=== PATIENT | female | born 1985 | race Caucasian/White ===

== ENCOUNTER 2020-12-25 19:26 | Inpatient (IN) ==
[2020-12-25 20:10] LABS: Appearance Urine Clear (Clear); Bacteria Urine Automated Negative (Negative); Bilirubin Urine Negative (Negative); Blood Urine 3+ (Negative); Cast Urine Automated 0 /lpf (0-5); Color Urine Orange; Glucose Urine UA Negative (Negative); Ketones Urine Negative (Negative); Leukocyte Esterase Urine Negative (Negative); Nitrite Urine Negative (Negative); Protein Urine Negative (Negative); RBC Urine Automated 0-4 /hpf (0-4); Specific Gravity Urine 1.003 (1.000-1.030); Urobilinogen Urine Negative (Negative); pH Urine 6.5 (4.5-7.5)
[2020-12-25 20:44] LABS: Amphetamines+Metham, Urine Neg (Neg); Barbiturates, Urine Neg (Neg); Benzodiazepine, Urine Neg (Neg); Cocaine, Urine Neg (Neg); MDMA (Ecstacy), Urine Neg (Neg); Methadone, Urine Neg (Neg); Opiate, Urine Neg (Neg); Phencyclidine, Urine Neg (Neg)
[2020-12-25 20:49] LABS: Basophils # (auto) 0.01 K/uL (0-0.2); Basophils % (auto) 0.2 %; Eosinophils # (auto) 0.23 K/uL (0-0.5); Eosinophils % (auto) 4.6 %; Hematocrit (blood only) 40.2 % (37-47); Hemoglobin 13.6 g/dL (12.0-16.0); Immature Granulocytes # (auto) 0.02 K/uL (0.00-0.02); Immature Granulocytes % (auto) 0.4 %; Lymphocytes # (auto) 2.06 K/uL (1.2-3.4); Lymphocytes % (auto) 41.1 %; Mean Corpuscular Hemoglobin 32.1 pg (25-34); Mean Corpuscular Hgb Conc 33.8 g/dL (32-36); Mean Corpuscular Volume 94.8 fL (80-100); Mean Platelet Volume 10.8 fL (7.4-10.4); Monocytes # (auto) 0.46 K/uL (0.11-0.59); Monocytes % (auto) 9.2 %; Neutrophils # (auto) 2.23 K/uL (1.4-6.5); Neutrophils % (auto) 44.5 %; Platelet Count 164 K/uL (130-400); RDW Coefficient of Variation 12.8 % (11.5-14.5); RDW Standard Deviation 44.4 fL (36.4-46.3); Red Blood Count 4.24 M/uL (4.2-5.4); White Blood Count 5.01 K/uL (4.8-10.8)
[2020-12-25 21:08] LABS: Acetaminophen < 2 ug/ml (10-30); Albumin Level 3.5 gm/dl (3.4-5.0); Calcium 8.7 mg/dl (8.5-10.1); Creatinine Clr Calc Pharmacy 79.1 ml/min; Est GFR (African American) 127.9 ml/min; Est GFR (Non-African American) 110.4 ml/min; Potassium 3.5 mmol/L (3.5-5.1); Salicylate < 1.7 mg/dl (2.8-20)
[2020-12-25 21:18] LABS: Bilirubin,Total 0.4 mg/dl (0.2-1); Globulin 3.4 gm/dl (2.5-4.0); Thyroid Stimulating Hormone 1.34 uIu/ml (0.300-4.500); Total Protein 6.9 gm/dl (6.4-8.2)
--- NOTE | 2020-12-25 22:40 | Emergency Department Note ---
Impression & Plan Mood disorder, Suicidal ideation ED Provider Note INFORMANT: Patient, [facility] ED PROVIDER(S): Tonny Hummel MD CHIEF COMPLAINT: Mental health evaluation PLAN: Disposition: Still patient Condition: Good Outpatient prescription management: none Referral: None MEDICAL DECISION MAKING: Patient presented to the emergency department because of a 302 warrant. She had written multiple suicide notes and was going to use a knife to harm herself. She is going through a separation with her . The patient was evaluated by the [facility] today and there was significant concern about her lack of insight and her plan that was set forth including writing multiple suicide notes. The patient could not contract for safety and the delegate generated a warrant for mental health evaluation. The patient was brought into the emergency department by police. Laboratory testing was unremarkable. The patient is not . Toxicology screen did not reveal any acute findings. The patient did not feel that she needed to be admitted to the hospital. Given the situation with the significant concern for her safety the 302 was upheld. A bed search is underway. The patient's case was signed out to Dr. Orosco at the change of shift. Triage Nursing notes reviewed and agree them. Vital Signs: reviewed and remarkable for no significant abnormalities Differential diagnosis: Mood disorder, infection, hypoglycemia, electrolyte abnormalities, cardiac sources, intracerebral event, toxicologic, trauma, neurologic, as well as other pathologies. Diagnostics interpreted by me: ECG: none Cardiac Monitoring: none Imaging studies: Deferred HPI: The patient is a 35 year old female who presents to the Emergency Room on a 302 warrant for mental health evaluation. This started today by the [facility] and is stemming from plans of suicide yesterday. The patient also note s the following associated symptoms, patient denies. No homicidal ideation. The patient states that she was holding a knife and was going to cut herself. She received a call from the social contact worker and that broke her thought process and she put the knife down. She did write multiple suicidal notes. The [facility] could not contract her for safety and was very concerned about her. A 302 warrant was generated in order to have the patient fully evaluated. The patient has been admitted to the hospital for mental health reasons in the past. She states she was at the [facility] and did not have a good experience there. Patient also notes because being upset yesterday she did not take her psychiatric medications. The patient has taken no medication for relieving factors. Current pain is rated as 0/10. No recent illnesses. No trauma. Pt denies LOC, headache, fevers, chills, diaphoresis, visual changes, neck pain, chest pain, breathing difficulties, nausea, vomiting, abdominal pain, back pain, melena, hematochezia, urinary symptoms, numbness, weakness, lymphadenopathy, rash, or other complaints. ROS: See above HPI for pertinent positives & negatives. A total of 10 systems reviewed and were otherwise negative. PAST MEDICAL HISTORY:See Below , depression PAST SURGICAL HISTORY:See Below, FAMILY HISTORY:See Below SOCIAL HISTORY:See Below, going through a divorce HOME MEDICATIONS:See Below ALLERGIES:See Below VITALS:See Below PHYSICAL EXAMINATION: GENERAL: Awake, alert, well-appearing, in no distress HENT: Normocephalic, atraumatic. Oropharynx unremarkable. EYES: Normal conjunctiva. Sclera non-icteric. NECK: Inspection normal. Non-tender. Supple. No nuchal rigidity. FROM. No masses. RESPIRATORY: Clear to auscultation. No wheezes. No rales. Normal respiratory effort. CARDIAC: Normal rate. Normal rhythm. No murmurs. No rubs. Extremities warm and well perfused. Pulses equal. No JVD. GI: Soft, non-distended. No tenderness to palpation. No rebound or guarding. No masses. RECTAL: Deferred. MUSCULOSKELETAL: Atraumatic. Chest examination reveals no tenderness. The back is symmetrical on inspection without obvious abnormality. There is no CVA tenderness to palpation. No joint edema. LOWER EXTREMITIES: Calves are equal size bilaterally and non-tender. No edema. No discoloration. NEURO: Normal sensorium. No sensory or motor deficits noted. SKIN: No rash or jaundice noted. PSYCH: No hallucinations or delusions. Impaired insight and poor judgment. Denies current suicidal ideation. No homicidal ideation. Tonny Hummel MD Past Med/Surg History Social History Smoking Status: Never smoker Feels Safe at Home: Yes Allergies Allergies Allergy/AdvReac Type Severity Reaction Status Date / Time No Known Allergies Allergy Unverified 12/25/20 21:59 Home Meds Home Medications Medication Instructions Recorded Confirmed sertraline PO DAILY 12/25/20 Results & Data (ED) Vital Signs Vital Signs - 24 hr 12/25/20 19:15 12/25/20 21:38 Temperature 37.1 C Temperature Source Oral Pulse Rate 82 Pulse Rate [Finger] 72 Respiratory Rate 16 16 Respiratory Effort / Characteristics Non-Labored Respiratory Depth Normal Blood Pressure 132/83 Blood Pressure [Left Arm] 126/76 Blood Pressure Mean 99 Blood Pressure Mean [Left Arm] 92 Pulse Oximetry 98 99 Oxygen Delivery Method Room Air Room Air Sepsis Recent Fever Within 48 Hours No Sepsis New/Unexplained Change in Mental Status No Sepsis Action Taken by Nursing No Action Required Laboratory Data Result diagrams: 12/25/20 20:37 12/25/20 20:37 Lab Results 12/25/20 12/25/20 12/25/20 Range/Units 19:30 19:30 19:47 WBC (4.8-10.8) K/uL RBC (4.2-5.4) M/uL Hgb (12.0-16.0) g/dL Hct (37-47) % MCV (80-100) fL MCH (25-34) pg MCHC (32-36) g/dL RDW Std Deviation (36.4-46.3) fL RDW Coeff of Karolyn (11.5-14.5) % Plt Count (130-400) K/uL MPV (7.4-10.4) fL Immature Gran % (Auto) % Neut % (Auto) % Lymph % (Auto) % Ogle % (Auto) % Eos % (Auto) % Baso % (Auto) % Neut # (Auto) (1.4-6.5) K/uL Lymph # (Auto) (1.2-3.4) K/uL Ogle # (Auto) (0.11-0.59) K/uL Eos # (Auto) (0-0.5) K/uL Baso # (Auto) (0-0.2) K/uL Immature Gran # (Auto) (0.00-0.02) K/uL Sodium (136-145) mmol/L Potassium (3.5-5.1) mmol/L Chloride (98-107) mmol/L Carbon Dioxide (21-32) mmol/L Anion Gap (3-11) BUN (7-18) mg/dl Creatinine (0.6-1.2) mg/dl Est Cr Clr Drug Dosing ml/min Est GFR ( Amer) ml/min Est GFR (Non-Af Amer) ml/min BUN/Creatinine Ratio (10-20) Glucose (70-99) mg/dl Calcium (8.5-10.1) mg/dl Total Bilirubin (0.2-1) mg/dl AST (15-37) U/L ALT (12-78) U/L Alkaline Phosphatase (45-117) U/L Total Protein (6.4-8.2) gm/dl Albumin (3.4-5.0) gm/dl Globulin (2.5-4.0) gm/dl Albumin/Globulin Ratio (0.9-2) TSH (0.300-4.500) uIu/ml Urine Color Emmet Urine Appearance Clear (Clear) Urine pH 6.5 (4.5-7.5) Ur Specific Aurora 1.003 (1.000-1.030) Urine Protein Negative (Negative) Urine Glucose (UA) Negative (Negative) Urine Ketones Negative (Negative) Urine Blood 3+ H (Negative) Urine Nitrite Negative (Negative) Urine Bilirubin Negative (Negative) Urine Urobilinogen Negative (Negative) Ur Leukocyte Esterase Negative (Negative) Urine WBC (Auto) 1-5 (0-5) /hpf Urine RBC (Auto) 0-4 (0-4) /hpf U Hyaline Cast (Auto) 0 (0-5) /lpf U Epithel Cells (Auto) 5-10 H (0-5) /lpf Urine Bacteria (Auto) Negative (Negative) POC Ur Test NEG (NEG) Salicylates (2.8-20) mg/dl Urine Opiates Screen Neg (Neg) Ur Methadone, Qual Neg (Neg) Acetaminophen (10-30) ug/ml Urine Barbiturates Neg (Neg) Ur Phencyclidine (PCP) Neg (Neg) U Amphetamin/Meth Scrn Neg (Neg) MDMA (Ecstasy) Screen Neg (Neg) U Benzodiazepines Scrn Neg (Neg) Ur Cocaine Metabolite Neg (Neg) U Marijuana (THC) Screen Neg (Neg) Ethyl Alcohol mg/dL (0-3) mg/dl COVID-19 Eval Order SARS-CoV-2, RNA, NAAT (NEGATIVE) 12/25/20 12/25/20 12/25/20 Range/Units 20:37 20:37 20:37 WBC 5.01 (4.8-10.8) K/uL RBC 4.24 (4.2-5.4) M/uL Hgb 13.6 (12.0-16.0) g/dL Hct 40.2 (37-47) % MCV 94.8 (80-100) fL MCH 32.1 (25-34) pg MCHC 33.8 (32-36) g/dL RDW Std Deviation 44.4 (36.4-46.3) fL RDW Coeff of Karolyn 12.8 (11.5-14.5) % Plt Count 164 (130-400) K/uL MPV 10.8 H (7.4-10.4) fL Immature Gran % (Auto) 0.4 % Neut % (Auto) 44.5 % Lymph % (Auto) 41.1 % Ogle % (Auto) 9.2 % Eos % (Auto) 4.6 % Baso % (Auto) 0.2 % Neut # (Auto) 2.23 (1.4-6.5) K/uL Lymph # (Auto) 2.06 (1.2-3.4) K/uL Ogle # (Auto) 0.46 (0.11-0.59) K/uL Eos # (Auto) 0.23 (0-0.5) K/uL Baso # (Auto) 0.01 (0-0.2) K/uL Immature Gran # (Auto) 0.02 (0.00-0.02) K/uL Sodium 142 (136-145) mmol/L Potassium 3.5 (3.5-5.1) mmol/L Chloride 109 H (98-107) mmol/L Carbon Dioxide 27 (21-32) mmol/L Anion Gap 6.0 (3-11) BUN 8 (7-18) mg/dl Creatinine 0.71 (0.6-1.2) mg/dl Est Cr Clr Drug Dosing 79.1 ml/min Est GFR ( Amer) 127.9 ml/min Est GFR (Non-Af Amer) 110.4 ml/min BUN/Creatinine Ratio 11.0 (10-20) Glucose 89 (70-99) mg/dl Calcium 8.7 (8.5-10.1) mg/dl Total Bilirubin 0.4 (0.2-1) mg/dl AST 15 (15-37) U/L ALT 21 (12-78) U/L Alkaline Phosphatase 85 (45-117) U/L Total Protein 6.9 (6.4-8.2) gm/dl Albumin 3.5 (3.4-5.0) gm/dl Globulin 3.4 (2.5-4.0) gm/dl Albumin/Globulin Ratio 1.0 (0.9-2) TSH 1.340 (0.300-4.500) uIu/ml Urine Color Urine Appearance (Clear) Urine pH (4.5-7.5) Ur Specific Aurora (1.000-1.030) Urine Protein (Negative) Urine Glucose (UA) (Negative) Urine Ketones (Negative) Urine Blood (Negative) Urine Nitrite (Negative) Urine Bilirubin (Negative) Urine Urobilinogen (Negative) Ur Leukocyte Esterase (Negative) Urine WBC (Auto) (0-5) /hpf Urine RBC (Auto) (0-4) /hpf U Hyaline Cast (Auto) (0-5) /lpf U Epithel Cells (Auto) (0-5) /lpf Urine Bacteria (Auto) (Negative) POC Ur Test (NEG) Salicylates < 1.7 L (2.8-20) mg/dl Urine Opiates Screen (Neg) Ur Methadone, Qual (Neg) Acetaminophen < 2 L (10-30) ug/ml Urine Barbiturates (Neg) Ur Phencyclidine (PCP) (Neg) U Amphetamin/Meth Scrn (Neg) MDMA (Ecstasy) Screen (Neg) U Benzodiazepines Scrn (Neg) Ur Cocaine Metabolite (Neg) U Marijuana (THC) Screen (Neg) Ethyl Alcohol mg/dL (0-3) mg/dl COVID-19 Eval Order SARS-CoV-2, RNA, NAAT (NEGATIVE) 12/25/20 12/25/20 12/25/20 Range/Units 20:37 21:45 21:45 WBC (4.8-10.8) K/uL RBC (4.2-5.4) M/uL Hgb (12.0-16.0) g/dL Hct (37-47) % MCV (80-100) fL MCH (25-34) pg MCHC (32-36) g/dL RDW Std Deviation (36.4-46.3) fL RDW Coeff of Karolyn (11.5-14.5) % Plt Count (130-400) K/uL MPV (7.4-10.4) fL Immature Gran % (Auto) % Neut % (Auto) % Lymph % (Auto) % Ogle % (Auto) % Eos % (Auto) % Baso % (Auto) % Neut # (Auto) (1.4-6.5) K/uL Lymph # (Auto) (1.2-3.4) K/uL Ogle # (Auto) (0.11-0.59) K/uL Eos # (Auto) (0-0.5) K/uL Baso # (Auto) (0-0.2) K/uL Immature Gran # (Auto) (0.00-0.02) K/uL Sodium (136-145) mmol/L Potassium (3.5-5.1) mmol/L Chloride (98-107) mmol/L Carbon Dioxide (21-32) mmol/L Anion Gap (3-11) BUN (7-18) mg/dl Creatinine (0.6-1.2) mg/dl Est Cr Clr Drug Dosing ml/min Est GFR ( Amer) ml/min Est GFR (Non-Af Amer) ml/min BUN/Creatinine Ratio (10-20) Glucose (70-99) mg/dl Calcium (8.5-10.1) mg/dl Total Bilirubin (0.2-1) mg/dl AST (15-37) U/L ALT (12-78) U/L Alkaline Phosphatase (45-117) U/L Total Protein (6.4-8.2) gm/dl Albumin (3.4-5.0) gm/dl Globulin (2.5-4.0) gm/dl Albumin/Globulin Ratio (0.9-2) TSH (0.300-4.500) uIu/ml Urine Color Urine Appearance (Clear) Urine pH (4.5-7.5) Ur Specific Aurora (1.000-1.030) Urine Protein (Negative) Urine Glucose (UA) (Negative) Urine Ketones (Negative) Urine Blood (Negative) Urine Nitrite (Negative) Urine Bilirubin (Negative) Urine Urobilinogen (Negative) Ur Leukocyte Esterase (Negative) Urine WBC (Auto) (0-5) /hpf Urine RBC (Auto) (0-4) /hpf U Hyaline Cast (Auto) (0-5) /lpf U Epithel Cells (Auto) (0-5) /lpf Urine Bacteria (Auto) (Negative) POC Ur Test (NEG) Salicylates (2.8-20) mg/dl Urine Opiates Screen (Neg) Ur Methadone, Qual (Neg) Acetaminophen (10-30) ug/ml Urine Barbiturates (Neg) Ur Phencyclidine (PCP) (Neg) U Amphetamin/Meth Scrn (Neg) MDMA (Ecstasy) Screen (Neg) U Benzodiazepines Scrn (Neg) Ur Cocaine Metabolite (Neg) U Marijuana (THC) Screen (Neg) Ethyl Alcohol mg/dL < 3.0 (0-3) mg/dl COVID-19 Eval Order Covid19 [facility] SARS-CoV-2, RNA, NAAT NEGATIVE (NEGATIVE) Discharge Plan Visit Data Chief Complaint: Mental Health Evaluation ED Provider: Tonny Hummel Discharge Problem: Mood disorder, Suicidal ideation Forms Stand Alone Forms: [facility], Suicide Prevention Resources Prescriptions Prescriptions: No Action sertraline PO DAILY RF: 0 Referrals Referrals: PCP,NO [Physician] -
[2020-12-26] MEDS ORDERED: BISMUTH SUBSALICYLATE LIQD 236 ML PO PRN (00:59)
[2020-12-26] MEDS ORDERED: SODIUM CHLORIDE 0.65% NA SOLN 45 ML (OCEAN) PRN (00:59)
[2020-12-26] MEDS ORDERED: MAGNESIUM HYDROXIDE SUSP 30 ML UDC PO PRN (00:59)
[2020-12-26] MEDS ORDERED: ALUMINUM/MAGNESIUM SUSP 30 ML UDC PO PRN (00:59)
[2020-12-26] MEDS ORDERED: hydrOXYzine HCl 25 MG TAB PO PRN ×2 (00:59)
[2020-12-26 01:24] VITALS: O2SAT 98
--- NOTE | 2020-12-26 07:41 | Emergency Department Note ---
ED Visit Note Patient signed out to me at change of shift. Patient is a 302. Please refer to Dr. Hummel's note for prior details that he did initially seen and medically cleared the patient. Patient referred to [facility] and was accepted there. .
[2020-12-26] MEDS ORDERED: SERTRALINE HCL 50 MG TABLET PO SCH (12:30)
[2020-12-26] MEDS: ACETAMINOPHEN 325 MG TAB PO PRN (17:07)
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
[2020-12-26] MEDS ORDERED: LORazepam 0.5 MG TAB PO PRN (17:27)
[2020-12-27] MEDS: SERTRALINE HCL 50 MG TABLET PO SCH ×2 (09:17→10:09)
--- NOTE | 2020-12-27 10:39 | Psychiatric Progress Note ---
Date of Service December 27, 2020 Impression / Recommendations Impression This is a 35-year-old female with a history of MDD with suicidal ideation and 2 prior suicide attempts who presents today after having made suicidal threats to her family members and is currently being held on a 302 involuntary hospitalization. She will require inpatient hospitalization for purposes of safety, stabilization, and medication management. Patient presently denying any further suicidal ideation today, we will continue to monitor observe. (1) Mood disorder: The patient was admitted to the [facility] ([facility] mental health unit) on every 15 minute checks (behavioral with suicide precautions for safety. The patient will participate in group, recreational, and milieu therapies and will be offered additional individual and family sessions as clinically appropriate. 12/27/2020atient took her medication, continues to report that her mood is improved. 12/26/2020atient currently taking 50 mg of Zoloft p.o. every morning. We will plan to increase this dosage to 75 mg p.o. every morning starting tomorrow morning. Protective Factors Assessment Employed: No Interval History Chief Complaint "I am, but I think the medicine made me nauseous". Review of Systems Sleep Information Total Hours of Sleep: 6.5 Sleep Comments: pt awaken due to patient yelling in the hallway. pt on q-15 minute checks Meal Information Percent Meal Consumed - Breakfast: 0 Percent Meal Consumed - Lunch: 100 Percent Meal Consumed - Dinner: 0 Subjective Subjective Patient seen, chart reviewed and case discussed with treatment team, nursing and social work. Patient reports a fair night of sleep and poor appetite. She reports that the medication is making her nauseous. Regarding mood, patient reports some improvement which they attribute to the medications as well as the therapy they have received on the unit. She continues to deny any suicidal ideation. At first patient was initially reluctant to take the medication, but then did with encouragement. She attributes it to feeling "too drugged up "at her other inpatient hospitalizations and is fearful that the medication will create a similar effect. She was reassured that some of the side effects are transient. I spent 30 minutes with the patient, 50% of which was dedicated to counselling and coordination of care. Physical Exam Psychiatric Orientation: alert and oriented x 3 Apperance: appropriately dressed Eye Contact: + fair eye contact Motor Behavior: no abnormal motor movements Speech: normal rate/rhythm/volume of speech Affect: + depressed affect, + anxious affect and + tearful affect Mood: + depressed mood and + anxious mood Thought Process: linear/logical thought process Thought Content: reality based without delusions Suicidal Thoughts: denies suicidal thoughts and denies suicidal plan Homicidal Thoughts: denies homicidal thoughts and denies homicidal plan Hallucinations: + auditory hallucinations and + visual hallucinations Cognition: recent memory grossly intact Estimated Intelligence: consistent with education level Insight: + fair insight Judgement: + limited judgement Vital Signs (Past 24 Hours) Last Vital Signs Temp 36.6 C 12/27/20 06:00 Pulse 83 12/27/20 06:39 Resp 16 12/27/20 06:00 BP 94/60 L 12/27/20 06:39 Pulse Ox 98 12/26/20 01:23 Results & Data ([facility] [place]) Current Inpatient Medications Current Inpatient Medications: Current Inpatient Medications Acetaminophen (Acetaminophen 325 Mg Tab) 650 mg PO Q4H PRN PRN Reason: Headache or Minor Fever Stop: 01/25/21 00:58 Last Admin: 12/26/20 17:07 Dose: 650 mg Documented by: Al Hydrox/Mg Hydrox/Simethicone (Aluminum/Magnesium Susp 30 Ml Udc) 30 ml PO Q4H PRN PRN Reason: GI Upset Stop: 01/25/21 00:58 Bismuth Subsalicylate (Bismuth Subsalicylate Liqd 236 Ml) 15 ml PO PRN PRN PRN Reason: Loose Stool Stop: 01/25/21 00:58 Hydroxyzine HCl (Hydroxyzine Hcl 25 Mg Tab) 50 mg PO HSZ PRN PRN Reason: Insomnia Stop: 01/25/21 00:58 Hydroxyzine HCl (Hydroxyzine Hcl 25 Mg Tab) 25 mg PO Q4H PRN PRN Reason: Anxiety Stop: 01/25/21 00:58 Lorazepam (Lorazepam 0.5 Mg Tab) 0.5 mg PO Q6 PRN PRN Reason: Anxiety Stop: 01/25/21 17:26 Magnesium Hydroxide (Magnesium Hydroxide Susp 30 Ml Udc) 30 ml PO DAILY PRN PRN Reason: Constipation Stop: 01/25/21 00:58 Sertraline HCl (Sertraline Hcl 50 Mg Tablet) 75 mg PO QAM ILIA Stop: 01/26/21 08:59 Last Admin: 12/27/20 10:09 Dose: 75 mg Documented by: Sodium Chloride (Sodium Chloride 0.65% Na Soln 45 Ml ([place])) 1 - 2 sprays NA PRN PRN PRN Reason: Nasal Dryness/Congestion Stop: 01/25/21 00:58 Mental Health & Subst Abuse Tx Psychiatrist Name of Psychiatrist: Dari Ruff Date of Appointment with Psychiatrist: 01/24/21 Therapist Name of Therapist: July Charles (support group) Therapist's Therapy Appointment Comment: [address], [place] [address] Shaker Screen Operator Name of Shaker Screen Operator: Ernesto CARTY Phone Number for Shaker Screen Operator: [phone] Case Management Appointment Comment: [address], [place] [address] Post Discharge Appointments Primary Care Physician Name Of Family Doctor: DICK Hopper Primary Care Provider Appointment Comment: [address], [place] [address] Partial or Psych Rehab Name of Partial or Psych Rehab: [phone] Phone Number of Partial or Psych Rehab: [address] [place] [address], [place] [address] Contact Information Discharge Discharge Address: [address] [place] [address], [place] [address]
[2020-12-27] MEDS ORDERED: SERTRALINE HCL 50 MG TABLET PO SCH (12:30)
[2020-12-27] MEDS: ACETAMINOPHEN 325 MG TAB PO PRN (13:41)
[2020-12-28] MEDS: SERTRALINE HCL 50 MG TABLET PO SCH (09:21)
--- NOTE | 2020-12-28 13:50 | Psychiatric Progress Note ---
Date of Service December 28, 2020 Impression / Recommendations Impression This is a 35-year-old female with a history of MDD with suicidal ideation and 2 prior suicide attempts who presents today after having made suicidal threats to her family members and is currently being held on a 302 involuntary hospitalization. She will require inpatient hospitalization for purposes of safety, stabilization, and medication management. Patient presently denying any further suicidal ideation today, we will continue to monitor observe. (1) Mood disorder: The patient was admitted to the [facility] ([facility] mental health unit) on every 15 minute checks (behavioral with suicide precautions for safety. The patient will participate in group, recreational, and milieu therapies and will be offered additional individual and family sessions as clinically appropriate. 12/28/2020atient continues to be compliant with medication, is reporting stabilization of mood and denying suicidal ideation. We will start discharge planning for tomorrow. 12/27/2020atient took her medication, continues to report that her mood is improved. 12/26/2020atient currently taking 50 mg of Zoloft p.o. every morning. We will plan to increase this dosage to 75 mg p.o. every morning starting tomorrow morning. Protective Factors Assessment Employed: No Interval History Chief Complaint "I'm feeling better". Review of Systems Sleep Information Total Hours of Sleep: 7 Sleep Comments: pt awaken due to patient yelling in the hallway. pt on q-15 minute checks Meal Information Percent Meal Consumed - Breakfast: 100 Percent Meal Consumed - Lunch: 100 Percent Meal Consumed - Dinner: 25 Subjective Subjective Patient seen, chart reviewed and case discussed with treatment team, nursing and social work. Patient reports a good night of sleep and strong appetite. No side effects reported or observed. Regarding mood, patient reports some improvement which they attribute to the medications as well as the therapy they have received on the unit. I spent 30 minutes with the patient, 50% of which was dedicated to counselling and coordination of care. Physical Exam Psychiatric Orientation: alert and oriented x 3 Apperance: appropriately dressed Eye Contact: + fair eye contact Motor Behavior: no abnormal motor movements Speech: normal rate/rhythm/volume of speech Affect: + depressed affect, + anxious affect and + tearful affect Mood: + depressed mood and + anxious mood Thought Process: linear/logical thought process Thought Content: reality based without delusions Suicidal Thoughts: denies suicidal thoughts and denies suicidal plan Homicidal Thoughts: denies homicidal thoughts and denies homicidal plan Hallucinations: + auditory hallucinations and + visual hallucinations Cognition: recent memory grossly intact Estimated Intelligence: consistent with education level Insight: + fair insight Judgement: + limited judgement Vital Signs (Past 24 Hours) Last Vital Signs Temp 36 C L 12/28/20 06:36 Pulse 65 12/28/20 06:37 Resp 16 12/28/20 06:36 BP 95/69 L 12/28/20 06:37 Pulse Ox 98 12/26/20 01:23 Results & Data ([facility]) Current Inpatient Medications Current Inpatient Medications: Current Inpatient Medications Acetaminophen (Acetaminophen 325 Mg Tab) 650 mg PO Q4H PRN PRN Reason: Headache or Minor Fever Stop: 01/25/21 00:58 Last Admin: 12/27/20 13:41 Dose: 650 mg Documented by: Al Hydrox/Mg Hydrox/Simethicone (Aluminum/Magnesium Susp 30 Ml Udc) 30 ml PO Q4H PRN PRN Reason: GI Upset Stop: 01/25/21 00:58 Bismuth Subsalicylate (Bismuth Subsalicylate Liqd 236 Ml) 15 ml PO PRN PRN PRN Reason: Loose Stool Stop: 01/25/21 00:58 Hydroxyzine HCl (Hydroxyzine Hcl 25 Mg Tab) 50 mg PO HSZ PRN PRN Reason: Insomnia Stop: 01/25/21 00:58 Hydroxyzine HCl (Hydroxyzine Hcl 25 Mg Tab) 25 mg PO Q4H PRN PRN Reason: Anxiety Stop: 01/25/21 00:58 Lorazepam (Lorazepam 0.5 Mg Tab) 0.5 mg PO Q6 PRN PRN Reason: Anxiety Stop: 01/25/21 17:26 Magnesium Hydroxide (Magnesium Hydroxide Susp 30 Ml Udc) 30 ml PO DAILY PRN PRN Reason: Constipation Stop: 01/25/21 00:58 Sertraline HCl (Sertraline Hcl 50 Mg Tablet) 75 mg PO QAM ILIA Stop: 01/26/21 08:59 Last Admin: 12/28/20 09:21 Dose: 75 mg Documented by: Sodium Chloride (Sodium Chloride 0.65% Na Soln 45 Ml ([place])) 1 - 2 sprays NA PRN PRN PRN Reason: Nasal Dryness/Congestion Stop: 01/25/21 00:58 Mental Health & Subst Abuse Tx Psychiatrist Name of Psychiatrist: Dari Ruff Psychiatrist's Date of Appointment with Psychiatrist: 01/02/21 Time of Appointment with Psychiatrist: 10:45am Psychiatric Appointment Comment: [facility] office Therapist Name of Therapist: Dl healy referral Therapist's Therapy Appointment Comment: [address], [place] [address] Hydraulic Chair Assembler Name of Hydraulic Chair Assembler: ARRONU Arianna Mauro Phone Number for Hydraulic Chair Assembler: [phone] Date of Appointment with Hydraulic Chair Assembler: 12/30/20 Time of Appointment with Hydraulic Chair Assembler: 4:00 p.m. Case Management Appointment Comment: Will see you at your home Post Discharge Appointments Primary Care Physician Name Of Family Doctor: DICK Hopper Primary Care Date of Appointment with PCP: 01/01/21 Time of Appointment with PCP: 2 p.m Provider Appointment Comment: [address], [place] [address] Partial or Psych Rehab Name of Partial or Psych Rehab: [phone] Phone Number of Partial or Psych Rehab: [address] [place] [address], [place] [address] Other #1: Name of Aftercare Appointment: [facility] (support group) Phone Number of Aftercare Appointment: [phone] Aftercare Appointment Comment: [address], [place] [address] Contact Information Discharge Discharge Address: [address] [place] [address], [place] [address]
[2020-12-29 06:22] VITALS: BP 94/58; TEMP 97.7
[2020-12-29] MEDS: SERTRALINE HCL 50 MG TABLET PO SCH (09:21)
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
[2020-12-29 10:13] VITALS: PULSE 65
[2020-12-29] MEDS ORDERED: DESTROY THIS MEDICATION ONE (10:23)
== END 2020-12-29 12:15 | disposition home or self-care (01) | DRG 881 ==
LOC: ED 19:26 → MERGE 12-26 00:59 → 3S 12-26 00:59

== ENCOUNTER 2021-10-18 13:12 | Inpatient (IN) ==
--- NOTE | 2021-10-18 14:14 | Emergency Department Note ---
Impression & Plan Depressed ED Provider Note NAME: VERONICA RAYGOZA AGE: 35 SEX: F : 1985 ARRIVES VIA: Walk-In INFORMANT: [Patient] ED PROVIDER(S): [Rohan Gee MD] CHIEF COMPLAINT: Mental health evaluation HISTORY OF PRESENT ILLNESS: Patient is a 35-year-old female who has had some increased stressors lately in her life. She is currently undergoing a divorce. As a result of the divorce, her children have been giving her some increased stress. The patient denies being homicidal or suicidal but she is feeling quite depressed. She believes she requires inpatient care. She is not sleeping, she is not eating. She is having crying spells. She has history of previous suicidality and suicide attempt. She is not currently medicated for depression but has taken depression medications in the past. There has been no cough or cold or congestion. No urinary complaints. She was recently diagnosed with an ovarian cyst. The patient presents voluntarily. REVIEW OF SYSTEMS: See HPI for pertinent positives and negatives. A total of ten systems were reviewed and were otherwise negative. PMHx/PSHx: See Below SOCIAL HISTORY: See Below. PHYSICAL EXAM: GENERAL: Patient is in no acute distress. Anxious, tearful. HEENT: No acute trauma, normocephalic atraumatic, mucous membranes moist, no nasal congestion, no scleral icterus. NECK: No stridor, no adenopathy, no meningismus, trachea is midline. LUNGS: Clear to auscultation bilaterally, no wheeze, no rhonchi, breath sounds equal. HEART: Without murmurs gallops or rubs, regular rate and rhythm. ABDOMEN: Soft, nontender, bowel sounds positive, no peritonitis. EXTREMITIES: No cyanosis or edema, full range of motion of all the joints without pain or difficulty, no signs for acute trauma. NEUROLOGIC: Oriented x 3, no acute motor or sensory deficits, no focal weakness. SKIN: No rash, no jaundice, no diaphoresis. Psychiatric: Cooperative, voluntary, tearful, flat affect. Admits to feeling depressed but denies being suicidal. DIFFERENTIAL DIAGNOSIS: Mood disorder, infection, hypoglycemia, depression, anxiety, suicidality, electrolyte abnormalities, cardiac sources, intracerebral event, toxicologic etiology, trauma, neurologic event, as well as other pathologies. EMERGENCY DEPARTMENT COURSE/PROCEDURES: MEDICAL DECISION MAKING: There is a very mild leukocytosis, no worrisome anemia. There is a normal platelet count. No significant electrolyte abnormality, no renal failure, no worrisome liver enzyme elevation. The patient appears to be in a euthyroid state. Urinalysis shows some hematuria, no infection. testing returned negative. Aspirin and Tylenol levels are undetectable. Alcohol level is pending. COVID test was negative. Urine tox did not show any abnormalities. On exam, the patient was tearful and upset. She appeared depressed. She had a flattened affect but denied being actively suicidal. The patient was felt medically clear for a psychiatric evaluation. She was seen by psychiatry case management. She has been cooperative during her ED stay. The patient is being referred to [facility] psychiatric facility. We await their assessment. At this point, the patient's case is being assumed by Dr. Westfall at the change of shift. Patient remains voluntary and will likely be a psychiatric hospitalization at our facility. Past Med/Surg History Medical History Acid reflux Migraine headache Ovarian cancer diagnosed 2016--sx/radiation Suicide attempt (~04/2020) Surgical History History of cancer surgery 2016--in [facility]--"just removed the cancer parts", pt denies oophorectomy History of wisdom tooth extraction S/P section x3 Family History Mother Hypertension Father Diabetes Family history of diabetes mellitus Hypertension Family hx of colon cancer Grandmother (Maternal) Family history of diabetes mellitus Other No family history of adverse response to anesthesia Denies family history of Colon cancer Ovarian cancer Prostate cancer Myocardial infarction Breast cancer Social History Smoking Status: Never smoker Second Hand Exposure: No; Hx Alcohol Use: Yes Alcohol type: wine Alcohol Intake Frequency: 2-4 x/Month Hx Substance Use: No Preferred Language: Italian Communication Ability: Effective Visual Impairment: No Limitations Hearing Ability: Normal Angledozer Operator Required: No Beliefs That Will Affect Care: None and Voodoo Voodoo Beliefs: Prays for 20 minutes at 08:00, 12:00 and 18:00 marital status: marital status details: separtated Current Living Situation: Family Current Living Situation Comment: Lives with son (separted from ),[employer] current occupational status: unemployed current occupation: Homemaker How many Children do You have: 2 How many Children do You have Comment: age 17 Feels Safe at Home: No Is there a partner from a previous relationship who is making you feel unsafe now?: No Childhood Exposure to Second-Hand Smoke: No caffeine: Yes Dental Care, Regularly: Yes Physical Activity Frequency: 1-2 Times per Week Seatbelt Use: always Sunscreen Use: Yes Do you think of yourself as: straight/heterosexual Assistive Devices: None Allergies Allergies Allergy/AdvReac Type Severity Reaction Status Date / Time No Known Allergies Allergy Verified 10/02/21 13:33 Home Meds Home Medications Medication Instructions Recorded Confirmed acetaminophen 500 mg tablet 1,000 mg PO Q6H PRN 01/29/21 10/02/21 (Tylenol Extra Strength) sertraline 50 mg tablet 75 mg PO QAM 01/29/21 10/02/21 Previous Rx's Medication Instructions Recorded naproxen 500 mg tablet 500 mg PO BID PRN #20 tab 10/02/21 Results & Data (ED) Vital Signs Vital Signs - 24 hr 10/18/21 13:16 10/18/21 13:51 10/18/21 15:12 Temperature 36.7 C Temperature Source Temporal Artery Scan Pulse Rate 86 Pulse Rate [Right Finger] 85 Pulse Rhythm [Right Finger] Regular Pulse Strength [Right Finger] Normal Respiratory Rate 18 87 H 17 Respiratory Effort / Characteristics Non-Labored Spontaneous Respiratory Depth Normal Normal Respiratory Pattern Regular Blood Pressure 101/61 Blood Pressure [Right Arm] 102/64 Blood Pressure Mean 74 Blood Pressure Mean [Right Arm] 76 Blood Pressure Position Sitting Blood Pressure Position [Right Arm] Lying Pulse Oximetry 99 100 100 Oxygen Delivery Method Room Air Room Air Room Air Sepsis Recent Fever Within 48 Hours No Sepsis New/Unexplained Change in Mental Status N/A Sepsis Action Taken by Nursing No Action Required Home Medications Current Medication List: was personally reviewed by me Laboratory Data Attestation: I reviewed the patient's lab results. Result diagrams: 10/18/21 13:46 10/18/21 13:46 Lab Results 10/18/21 10/18/21 10/18/21 Range/Units 13:33 13:33 13:46 WBC 4.52 L (4.8-10.8) K/uL RBC 4.05 L (4.2-5.4) M/uL Hgb 12.7 (12.0-16.0) g/dL Hct 37.8 (37-47) % MCV 93.3 (80-100) fL MCH 31.4 (25-34) pg MCHC 33.6 (32-36) g/dL RDW Std Deviation 45.9 (36.4-46.3) fL RDW Coeff of Karolyn 13.3 (11.5-14.5) % Plt Count 168 (130-400) K/uL MPV 11.2 H (7.4-10.4) fL Immature Gran % (Auto) 0.2 % Neut % (Auto) 51.2 % Lymph % (Auto) 33.8 % Cooke % (Auto) 10.2 % Eos % (Auto) 4.2 % Baso % (Auto) 0.4 % Neut # (Auto) 2.31 (1.4-6.5) K/uL Lymph # (Auto) 1.53 (1.2-3.4) K/uL [place]oke # (Auto) 0.46 (0.11-0.59) K/uL Eos # (Auto) 0.19 (0-0.5) K/uL Baso # (Auto) 0.02 (0-0.2) K/uL Immature Gran # (Auto) 0.01 (0.00-0.02) K/uL Sodium (136-145) mmol/L Potassium (3.5-5.1) mmol/L Chloride (98-107) mmol/L Carbon Dioxide (21-32) mmol/L Anion Gap (3-11) BUN (6-23) mg/dl Creatinine (0.6-1.2) mg/dl Est Cr Clr Drug Dosing ml/min Est GFR ( Amer) ml/min Est GFR (Non-Af Amer) ml/min BUN/Creatinine Ratio (10-20) Glucose (70-99(Fasting)) mg/dl Calcium (8.5-10.1) mg/dl Total Bilirubin (0.2-1.0) mg/dl AST (13-39) U/L ALT (7-52) U/L Alkaline Phosphatase (34-104) U/L Total Protein (6.0-8.3) gm/dl Albumin (3.4-5.0) gm/dl Globulin (2.5-4.0) gm/dl Albumin/Globulin Ratio (0.9-2) TSH (0.300-4.500) uIu/ml Urine Color Yellow Urine Appearance Clear (Clear) Urine pH 7.5 (4.5-7.5) Ur Specific [place] 1.015 (1.000-1.030) Urine Protein Negative (Negative) Urine Glucose (UA) Negative (Negative) Urine Ketones Negative (Negative) Urine Blood 2+ H (Negative) Urine Nitrite Negative (Negative) Urine Bilirubin Negative (Negative) Urine Urobilinogen Negative (Negative) Ur Leukocyte Esterase Negative (Negative) Urine WBC (Auto) 1-5 (0-5) /hpf Urine RBC (Auto) >30 H (0-4) /hpf U Hyaline Cast (Auto) 1-5 (0-5) /lpf U Epithel Cells (Auto) 10-20 H (0-5) /lpf Urine Bacteria (Auto) Negative (Negative) POC Ur Test (NEG) Salicylates (3.0-30) mg/dl Urine Opiates Screen Neg (Neg) Ur Methadone, Qual Neg (Neg) Acetaminophen (10-30) ug/ml Urine Barbiturates Neg (Neg) Ur Phencyclidine (PCP) Neg (Neg) U Amphetamin/Meth Scrn Neg (Neg) MDMA (Ecstasy) Screen Neg (Neg) U Benzodiazepines Scrn Neg (Neg) Ur Cocaine Metabolite Neg (Neg) U Marijuana (THC) Screen Neg (Neg) SARS-CoV-2, RNA, NAAT (NEGATIVE) 10/18/21 10/18/21 10/18/21 Range/Units 13:46 13:46 13:46 WBC (4.8-10.8) K/uL RBC (4.2-5.4) M/uL Hgb (12.0-16.0) g/dL Hct (37-47) % MCV (80-100) fL MCH (25-34) pg MCHC (32-36) g/dL RDW Std Deviation (36.4-46.3) fL RDW Coeff of Karolyn (11.5-14.5) % Plt Count (130-400) K/uL MPV (7.4-10.4) fL Immature Gran % (Auto) % Neut % (Auto) % Lymph % (Auto) % [place] % (Auto) % Eos % (Auto) % Baso % (Auto) % Neut # (Auto) (1.4-6.5) K/uL Lymph # (Auto) (1.2-3.4) K/uL [place] # (Auto) (0.11-0.59) K/uL Eos # (Auto) (0-0.5) K/uL Baso # (Auto) (0-0.2) K/uL Immature Gran # (Auto) (0.00-0.02) K/uL Sodium 139 (136-145) mmol/L Potassium 3.8 (3.5-5.1) mmol/L Chloride 108 H (98-107) mmol/L Carbon Dioxide 27 (21-32) mmol/L Anion Gap 4 (3-11) BUN 13 (6-23) mg/dl Creatinine 0.62 (0.6-1.2) mg/dl Est Cr Clr Drug Dosing 95.4 ml/min Est GFR ( Amer) 135.4 ml/min Est GFR (Non-Af Amer) 116.8 ml/min BUN/Creatinine Ratio 21.0 H (10-20) Glucose 81 (70-99(Fasting)) mg/dl Calcium 8.7 (8.5-10.1) mg/dl Total Bilirubin 0.5 (0.2-1.0) mg/dl AST 16 (13-39) U/L ALT 10 (7-52) U/L Alkaline Phosphatase 82 (34-104) U/L Total Protein 6.6 (6.0-8.3) gm/dl Albumin 4.1 (3.4-5.0) gm/dl Globulin 2.5 (2.5-4.0) gm/dl Albumin/Globulin Ratio 1.6 (0.9-2) TSH 1.281 (0.300-4.500) uIu/ml Urine Color Urine Appearance (Clear) Urine pH (4.5-7.5) Ur Specific [place] (1.000-1.030) Urine Protein (Negative) Urine Glucose (UA) (Negative) Urine Ketones (Negative) Urine Blood (Negative) Urine Nitrite (Negative) Urine Bilirubin (Negative) Urine Urobilinogen (Negative) Ur Leukocyte Esterase (Negative) Urine WBC (Auto) (0-5) /hpf Urine RBC (Auto) (0-4) /hpf U Hyaline Cast (Auto) (0-5) /lpf U Epithel Cells (Auto) (0-5) /lpf Urine Bacteria (Auto) (Negative) POC Ur Test (NEG) Salicylates < 3.0 L (3.0-30) mg/dl Urine Opiates Screen (Neg) Ur Methadone, Qual (Neg) Acetaminophen < 3 L (10-30) ug/ml Urine Barbiturates (Neg) Ur Phencyclidine (PCP) (Neg) U Amphetamin/Meth Scrn (Neg) MDMA (Ecstasy) Screen (Neg) U Benzodiazepines Scrn (Neg) Ur Cocaine Metabolite (Neg) U Marijuana (THC) Screen (Neg) SARS-CoV-2, RNA, NAAT (NEGATIVE) 10/18/21 10/18/21 Range/Units 14:37 14:45 WBC (4.8-10.8) K/uL RBC (4.2-5.4) M/uL Hgb (12.0-16.0) g/dL Hct (37-47) % MCV (80-100) fL MCH (25-34) pg MCHC (32-36) g/dL RDW Std Deviation (36.4-46.3) fL RDW Coeff of Karolyn (11.5-14.5) % Plt Count (130-400) K/uL MPV (7.4-10.4) fL Immature Gran % (Auto) % Neut % (Auto) % Lymph % (Auto) % [place] % (Auto) % Eos % (Auto) % Baso % (Auto) % Neut # (Auto) (1.4-6.5) K/uL Lymph # (Auto) (1.2-3.4) K/uL [place] # (Auto) (0.11-0.59) K/uL Eos # (Auto) (0-0.5) K/uL Baso # (Auto) (0-0.2) K/uL Immature Gran # (Auto) (0.00-0.02) K/uL Sodium (136-145) mmol/L Potassium (3.5-5.1) mmol/L Chloride (98-107) mmol/L Carbon Dioxide (21-32) mmol/L Anion Gap (3-11) BUN (6-23) mg/dl Creatinine (0.6-1.2) mg/dl Est Cr Clr Drug Dosing ml/min Est GFR ( Amer) ml/min Est GFR (Non-Af Amer) ml/min BUN/Creatinine Ratio (10-20) Glucose (70-99(Fasting)) mg/dl Calcium (8.5-10.1) mg/dl Total Bilirubin (0.2-1.0) mg/dl AST (13-39) U/L ALT (7-52) U/L Alkaline Phosphatase (34-104) U/L Total Protein (6.0-8.3) gm/dl Albumin (3.4-5.0) gm/dl Globulin (2.5-4.0) gm/dl Albumin/Globulin Ratio (0.9-2) TSH (0.300-4.500) uIu/ml Urine Color Urine Appearance (Clear) Urine pH (4.5-7.5) Ur Specific [place] (1.000-1.030) Urine Protein (Negative) Urine Glucose (UA) (Negative) Urine Ketones (Negative) Urine Blood (Negative) Urine Nitrite (Negative) Urine Bilirubin (Negative) Urine Urobilinogen (Negative) Ur Leukocyte Esterase (Negative) Urine WBC (Auto) (0-5) /hpf Urine RBC (Auto) (0-4) /hpf U Hyaline Cast (Auto) (0-5) /lpf U Epithel Cells (Auto) (0-5) /lpf Urine Bacteria (Auto) (Negative) POC Ur Test NEG (NEG) Salicylates (3.0-30) mg/dl Urine Opiates Screen (Neg) Ur Methadone, Qual (Neg) Acetaminophen (10-30) ug/ml Urine Barbiturates (Neg) Ur Phencyclidine (PCP) (Neg) U Amphetamin/Meth Scrn (Neg) MDMA (Ecstasy) Screen (Neg) U Benzodiazepines Scrn (Neg) Ur Cocaine Metabolite (Neg) U Marijuana (THC) Screen (Neg) SARS-CoV-2, RNA, NAAT NEGATIVE (NEGATIVE) Discharge Plan Visit Data Chief Complaint: Mental Health Evaluation Stated Complaint: ANXIETY, DEPRESSION ED Provider: Rohan Gee Discharge Problem: Depressed Patient Disposition: Still a Patient Condition: Good Forms Stand Alone Forms: [facility] Vendor Registry, Suicide Prevention Resources Prescriptions Prescriptions: No Action acetaminophen [Tylenol Extra Strength] 500 mg Tablet 1,000 mg PO Q6H PRN (Reason: Pain) RF: 0 sertraline 50 mg tablet 75 mg PO QAM RF: 0 naproxen 500 mg tablet 500 mg PO BID PRN (Reason: pain) Qty: 20 RF: 0 Referrals Referrals: Curtis Hopper DO [Primary Care Provider] - Discharge Problem: Depressed Qualifiers: Depression Type: unspecified Qualified Code(s): F32.A - Depression, unspecified
[2021-10-18 14:21] LABS: Hematocrit (blood only) 37.8 % (37-47); Hemoglobin 12.7 g/dL (12.0-16.0); Mean Corpuscular Hemoglobin 31.4 pg (25-34); Mean Corpuscular Hgb Conc 33.6 g/dL (32-36); Mean Corpuscular Volume 93.3 fL (80-100); Mean Platelet Volume 11.2 fL (7.4-10.4); Platelet Count 168 K/uL (130-400); RDW Coefficient of Variation 13.3 % (11.5-14.5); RDW Standard Deviation 45.9 fL (36.4-46.3); Red Blood Count 4.05 M/uL (4.2-5.4); White Blood Count 4.52 K/uL (4.8-10.8)
[2021-10-18 14:24] LABS: Appearance Urine Clear (Clear); Bacteria Urine Automated Negative (Negative); Bilirubin Urine Negative (Negative); Blood Urine 2+ (Negative); Color Urine Yellow; Glucose Urine UA Negative (Negative); Ketones Urine Negative (Negative); Leukocyte Esterase Urine Negative (Negative); Nitrite Urine Negative (Negative); Protein Urine Negative (Negative); RBC Urine Automated >30 /hpf (0-4); Specific Gravity Urine 1.015 (1.000-1.030); Urobilinogen Urine Negative (Negative); pH Urine 7.5 (4.5-7.5)
[2021-10-18 14:39] LABS: Basophils # (auto) 0.02 K/uL (0-0.2); Basophils % (auto) 0.4 %; Eosinophils # (auto) 0.19 K/uL (0-0.5); Eosinophils % (auto) 4.2 %; Immature Granulocytes # (auto) 0.01 K/uL (0.00-0.02); Immature Granulocytes % (auto) 0.2 %; Lymphocytes # (auto) 1.53 K/uL (1.2-3.4); Lymphocytes % (auto) 33.8 %; Monocytes # (auto) 0.46 K/uL (0.11-0.59); Monocytes % (auto) 10.2 %; Neutrophils # (auto) 2.31 K/uL (1.4-6.5); Neutrophils % (auto) 51.2 %
[2021-10-18 14:56] LABS: Albumin Globulin Ratio 1.6 (0.9-2); Albumin Level 4.1 gm/dl (3.4-5.0); Bilirubin,Total 0.5 mg/dl (0.2-1.0); Calcium 8.7 mg/dl (8.5-10.1); Creatinine Clr Calc Pharmacy 95.4 ml/min; Est GFR (African American) 135.4 ml/min; Est GFR (Non-African American) 116.8 ml/min; Globulin 2.5 gm/dl (2.5-4.0); Potassium 3.8 mmol/L (3.5-5.1); Total Protein 6.6 gm/dl (6.0-8.3)
[2021-10-18 14:57] LABS: Acetaminophen < 3 ug/ml (10-30); Salicylate < 3.0 mg/dl (3.0-30)
[2021-10-18 15:00] LABS: Amphetamines+Metham, Urine Neg (Neg); Barbiturates, Urine Neg (Neg); Benzodiazepine, Urine Neg (Neg); Cocaine, Urine Neg (Neg); MDMA (Ecstacy), Urine Neg (Neg); Methadone, Urine Neg (Neg); Opiate, Urine Neg (Neg); Phencyclidine, Urine Neg (Neg)
[2021-10-18] MEDS ORDERED: SODIUM CHLORIDE 0.65% NA SOLN 45 ML (OCEAN) PRN (18:19)
[2021-10-18] MEDS ORDERED: BISMUTH SUBSALICYLATE LIQD 236 ML PO PRN (18:19)
[2021-10-18] MEDS ORDERED: hydrOXYzine HCl 25 MG TAB PO PRN ×2 (18:19)
[2021-10-18] MEDS ORDERED: MAGNESIUM HYDROXIDE SUSP 30 ML UDC PO PRN (18:19)
[2021-10-18] MEDS ORDERED: ACETAMINOPHEN 325 MG TAB PO PRN (18:19)
[2021-10-18] MEDS ORDERED: ALUMINUM/MAGNESIUM SUSP 30 ML UDC PO PRN (18:19)
[2021-10-18] MEDS ORDERED: ACETAMINOPHEN 500 MG TAB PO PRN (18:21)
[2021-10-18] MEDS ORDERED: NAPROXEN 250 MG TAB PO PRN (18:21)
--- NOTE | 2021-10-18 22:55 | Emergency Department Note ---
ED Visit Note The patient was signed out to me awaiting mental health evaluation. She was evaluated by [facility] She was accepted to [facility] for psychiatric evaluation and care. . : Depressed Qualifiers: Depression Type: unspecified Qualified Code(s): F32.A - Depression, unspecified
[2021-10-19] MEDS ORDERED: SERTRALINE HCL 50 MG TABLET PO SCH (09:00)
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
[2021-10-19] MEDS ORDERED: COUGH DROP (SUGAR FREE) LOZ 24 LOZ/1 BOX BUCCAL PRN (14:45)
[2021-10-19] MEDS ORDERED: MIRTAZAPINE TAB 15 MG TAB PO SCH (22:00)
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
[2021-10-20] MEDS ORDERED: traZODone HCL 50 MG TAB PO PRN (17:56)
[2021-10-20] MEDS ORDERED: traZODone HCL 50 MG TAB PO SCH (22:00)
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
== END 2021-10-21 12:35 | disposition home or self-care (01) | DRG 881 ==
LOC: ED 13:12 → 3S 18:19

== ENCOUNTER 2024-09-16 12:45 | Observation (INO) ==
--- NOTE | 2024-09-16 12:58 | Emergency Department Note ---
Impression & Plan Subconjunctival hemorrhage, Acute hypokalemia, Stroke-like symptoms ED Provider Note NAME: VERONICA RAYGOZA AGE: 38 SEX: F : 1985 ARRIVES VIA: Walk-In INFORMANT: Patient, ED PROVIDER(S): Gustavo Wiggins MD CHIEF COMPLAINT: Left-sided numbness, headache MEDICAL DECISION MAKING: Patient presents with the above. On exam the patient seemed to have decreased ability with keeping the left arm elevated against resistance when compared to the right. Given these concerns a stroke alert was called. I did speak with Dr. Ty with telestroke neurology did promptly evaluate the patient. After further discussion he does not recommend any TNK at this time. He does recommend baby aspirin as well as a Plavix load. I did speak with the on-call hospitalist Dr. Morrow and the patient was admitted to the medicine service. MRI pending at the time of admit admission but CT head and CT angiography of the head and neck are negative. Discussion w/ other healthcare providers: Dr. Ty telestroke neurology Dr. Morrow inpatient medicine service Prior /Outside records reviewed: None Differential diagnosis: Infection, dehydration, metabolic abnormality, hypo/hyperglycemia, electrolyte imbalance, anemia, UTI, pneumonia, thyroid dysfunction among others were considered. Diagnostics, as interpreted by me: ECG: Normal sinus rhythm, rate of 91, normal intervals, normal axis no obvious ST elevations, possible nonspecific ST abnormality.ST abnormality may be new from comparison although morphology looks grossly unchanged from comparison September 17, 2023. Cardiac monitoring: An order was placed for continuous cardiac monitoring. The monitor shows a rate of 88 with sinus rhythm. Patient was placed on pulse oximetry Medical decision rules: None Imaging studies: [I informally interpreted the patient's CT head does not show obvious ICH with formal report to follow.] HPI: Patient presents due to concerns for headache and heaviness of the left arm as well as sensory changes. The patient states that she got up around 1030 to meet her ex- at the door at which point the time of getting up she noted that she had some left-sided changes in sensation in the left face and arm with associated numbness. Patient reportedly has had some chest heaviness as well. No reported exertional symptoms. Patient was seen at [facility] and was referred here for further evaluation treatment. Patient also noted that she had some bleeding to the left eye. Patient denies any bearing down or coughing or sneezing. Patient denies any falls or trauma denies any alcohol tobacco or drug use. PAST MEDICAL HISTORY: See Below PAST SURGICAL HISTORY: See Below SOCIAL HISTORY: See Below HOME MEDICATIONS: See Below ALLERGIES: See Below VITALS: See Below PHYSICAL EXAMINATION: GENERAL: NAD, non-toxic. EYE EXAM: Right-sided medial subconjunctival hemorrhage without hyphema or hypopyon. PERRL, no anisocoria and EOM's grossly intact w/o pain. OROPHARYNX: Moist mucus membranes, grossly normal dentition. NECK: Trachea midline, no stridor. LUNGS: Clear to auscultation. Normal chest wall mechanics. HEART: NSR, no MRG. ABDOMEN: Abdomen soft, non-tender, no masses, no rebound or guarding. BACK: No CVA TTP. SKIN: No rashes and no bruising. UPPER EXTREMITIES: Upper extremities are grossly normal. LOWER EXTREMITIES: Grossly normal, no edema. NEURO EXAM: Awake and alert, follows commands, no obvious facial asymmetry, cranial nerves II through XII grossly intact, normal speech, moves all 4 extremities but with weakness of left lower extremity against resistance compared to the right, equal and symmetric upper extremity strength, reports decrease sensation to the left arm and left leg as well as left face. Good [id number]. Past Med/Surg History Problem List (Updated 09/17/24 @ 11:23 by Gustavo Wiggins MD) Stroke-like symptoms (Acute) TIA (transient ischemic attack) Acute hypokalemia (Acute) Subconjunctival hemorrhage (Acute) Depressed (Acute) Mood disorder (Acute) Gastroesophageal reflux disease Hemorrhoids Erosive gastritis with hemorrhage Suicide attempt (~04/2020) Depression 12/2020 Hospitalized [facility] on 302 Gastritis Dysfunctional uterine bleeding Weight loss Medical History Suicidal ideation Ovarian cancer diagnosed 2016--sx/radiation Migraine headache Acid reflux Surgical History History of cancer surgery 2016--in [facility]--"just removed the cancer parts", pt denies oophorectomy History of wisdom tooth extraction S/P section x3 Family History Mother Hypertension Father Diabetes Family history of diabetes mellitus Hypertension Family hx of colon cancer Grandmother (Maternal) Family history of diabetes mellitus Other No family history of adverse response to anesthesia Denies family history of Colon cancer Ovarian cancer Prostate cancer Myocardial infarction Breast cancer Social History Smoking Status: Never smoker Second Hand Exposure: No; Do You Dip or Chew Tobacco: No; Hx Alcohol Use: Yes Alcohol type: wine Alcohol Intake Frequency: 2-4 x/Month Hx Substance Use: No Preferred Language: Hungarian Communication Ability: Effective Communication Ability Comment: Communicated effectively Visual Impairment: No Limitations Hearing Ability: Normal Health Science Writer Required: No Beliefs That Will Affect Care: None marital status: marital status details: separtated Current Living Situation: Family Current Living Situation Comment: lives with 3 sons aged 20 (twins), and 13 current occupational status: unemployed current occupation: Homemaker How many Children do You have: 2 Feels Safe at Home: Yes Childhood Exposure to Second-Hand Smoke: No Diet: regular caffeine: Yes Dental Care, Regularly: Yes Physical Activity Frequency: 1-2 Times per Week Seatbelt Use: always Sunscreen Use: Yes Do you think of yourself as: straight/heterosexual Assistive Devices: None Allergies Allergies Allergy/AdvReac Type Severity Reaction Status Date / Time No Known Allergies Allergy Verified 09/17/23 19:58 Home Meds Home Medications Medication Instructions Recorded Confirmed acetaminophen 500 mg tablet 1,000 mg PO Q6H PRN Pain 01/29/21 09/16/24 (Tylenol Extra Strength) Results & Data (ED) Vital Signs Vital Signs - 24 hr 09/16/24 12:47 09/16/24 12:55 09/16/24 13:00 Temperature 36.8 C Temperature Source Temporal Artery Scan Pulse Rate 80 88 Pulse Rate [Apical] Respiratory Rate 18 Respiratory Effort / Characteristics Non-Labored Spontaneous Respiratory Depth Normal Respiratory Pattern Regular Blood Pressure 129/83 Blood Pressure [Left Arm] Blood Pressure Mean 98 Blood Pressure Mean [Left Arm] Blood Pressure Position Sitting Pulse Oximetry 100 98 Oxygen Delivery Method Room Air Room Air Sepsis Recent Fever Within 48 Hours No Sepsis New/Unexplained Change in Mental Status N/A Sepsis Action Taken by Nursing No Action Required 09/16/24 13:00 Temperature Temperature Source Pulse Rate Pulse Rate [Apical] 99 H Respiratory Rate 16 Respiratory Effort / Characteristics Non-Labored Spontaneous Respiratory Depth Normal Respiratory Pattern Blood Pressure Blood Pressure [Left Arm] 98/74 L Blood Pressure Mean Blood Pressure Mean [Left Arm] 82 Blood Pressure Position Pulse Oximetry 98 Oxygen Delivery Method Room Air Sepsis Recent Fever Within 48 Hours Sepsis New/Unexplained Change in Mental Status Sepsis Action Taken by [facility] Medications Current Medication List: was personally reviewed by me Laboratory Data Attestation: I reviewed the patient's lab results. 09/16/24 13:05 09/17/24 06:14 Lab Results 09/16/24 09/16/24 09/16/24 Range/Units 13:05 13:05 13:13 WBC 4.90 (4.8-10.8) K/ul RBC 4.72 (4.20-5.40) M/uL Hgb 13.3 (12.0-16.0) g/dl Hct 40.8 (37.0-47.0) % MCV 86.4 (80.0-100.0) fL MCH 28.2 (25.0-34.0) pg MCHC 32.6 (32.0-36.0) g/dL RDW Std Deviation 48.1 H (36.4-46.3) fL RDW Coeff of Karolyn 15.1 H (11.5-14.5) % Plt Count 193 (130-400) K/uL MPV 11.1 (9.4-12.4) fL Immature Gran % (Auto) 0.4 % Neut % (Auto) 45.5 % Lymph % (Auto) 33.3 % Deuel % (Auto) 11.2 % Eos % (Auto) 9.0 % Baso % (Auto) 0.6 % Neut # (Auto) 2.23 (1.40-6.50) K/uL Lymph # (Auto) 1.63 (1.20-3.40) K/uL Deuel # (Auto) 0.55 (0.11-0.59) K/uL Eos # (Auto) 0.44 (0.00-0.50) K/uL Baso # (Auto) 0.03 (0.00-0.20) K/uL Immature Gran # (Auto) 0.02 (0.01-0.20) K/uL PT 11.0 (9.0-12.0) Seconds INR 1.0 (0.9-1.1) APTT 26 (21-31) Seconds PTT Ratio 1.0 D-Dimer < 190 (0-500) ug/L FEU Sodium 141 (136-145) mmol/L Potassium 3.4 L (3.5-5.1) mmol/L Chloride 107 (98-107) mmol/L Carbon Dioxide 26 (21-32) mmol/L Anion Gap 8 (3-11) BUN 15 (6-23) mg/dl Creatinine 0.82 (0.6-1.2) mg/dl Est Cr Clr Drug Dosing 70.2 ml/min eGFR 93.84 BUN/Creatinine Ratio 18.3 (10-20) Glucose 99 (70-99(Fasting)) mg/dl POC Glucose 94 (70-99) mg/dl Estimat Average Glucose 108 mg/dl Hemoglobin A1c 5.4 (4.5-5.6) % Calcium 9.4 (8.6-10.3) mg/dl Phosphorus 3.3 (2.5-4.9) mg/dl Magnesium 2.0 2.0 (1.7-2.4) mg/dl Total Bilirubin 0.6 (0.2-1.0) mg/dl AST 21 (13-39) U/L ALT 12 (7-52) U/L Alkaline Phosphatase 84 (34-104) U/L Total Creatine Kinase 66 (26-192) U/L Troponin I High Sens < 2.3 (0-14) pg/ml Total Protein 8.2 (6.0-8.3) gm/dl Albumin 4.5 (3.4-5.0) gm/dl Globulin 3.7 (2.5-4.0) gm/dl Albumin/Globulin Ratio 1.2 (0.9-2) TSH 4.082 (0.300-4.500) uIu/ml Administered Medications Aspirin (Aspirin 81 Mg Ectab) 81 mg PO DAILY ILIA Stop: 10/17/24 08:59 Last Admin: 09/17/24 08:54 Dose: 81 mg Documented By: AMS Discontinued Medications Acetaminophen (Acetaminophen 1000 Mg/100 Ml Iv) 1,000 mg IV NOW STA Stop: 09/16/24 13:41 Last Admin: 09/16/24 13:49 Dose: 1,000 mg Documented By: MABLE Aspirin (Aspirin Chew 324 Mg) 81 mg PO NOW STA Stop: 09/16/24 14:16 Last Admin: 09/16/24 14:29 Dose: 81 mg Documented By: TERRELL Clopidogrel Bisulfate (Clopidogrel Bisulfate 300 Mg Tab) 300 mg PO NOW STA Stop: 09/16/24 14:16 Last Admin: 09/16/24 14:29 Dose: 300 mg Documented By: TERRELL Clopidogrel Bisulfate (Clopidogrel Bisulfate 75 Mg Tab) 75 mg PO NOW ONE Stop: 09/16/24 22:07 Last Admin: 09/16/24 22:49 Dose: 75 mg Documented By: OTONIEL Dexamethasone Sodium Phosphate (DexamethasonePf 10 Mg/Ml Vial) 10 mg IV NOW ONE Stop: 09/16/24 13:41 Last Admin: 09/16/24 13:49 Dose: 10 mg Documented By: MABLE Sodium Chloride (Nss) 1,000 mls @ 999 mls/hr IV .Q1H1M ILIA Stop: 09/16/24 14:45 Last Infusion: 09/16/24 16:39 Dose: Infused Documented By: Admin: 09/16/24 13:49 Dose: 999 mls/hr Documented By: MABLE Ioversol (Optiray 320 125ml) 119 ml IV ONCE ONE Stop: 09/16/24 13:18 Last Admin: 09/16/24 13:17 Dose: 119 ml Documented By: PRAVEEN Ondansetron HCl (Ondansetron Inj 2 Mg/Ml 2 Ml Vial) 4 mg IV NOW STA Stop: 09/16/24 13:41 Last Admin: 09/16/24 13:49 Dose: 4 mg Documented By: MABLE Potassium Chloride (Potassium Chloride Crtab 20 Meq Tabcr) 40 meq PO NOW STA Stop: 09/16/24 16:36 Last Admin: 09/16/24 17:12 Dose: 40 meq Documented By: TERRELL Imaging Data Radiologist's Impression: Head CT 09/16/24 13:14 CT angio head w con, CT head/brain wo con, CT angio neck with con CLINICAL HISTORY: 38 years-old Female with neuro deficit, acute stroke suspected. Acute stroke like symptoms. Acute headache with dizziness. COMPARISON STUDY: None TECHNIQUE: Unenhanced axial CT scan of the brain is performed. Subsequently, following the IV administration of 119 cc of Optiray, CT angiogram of the head and neck was performed from the aortic arch to the skull apex. Images are reviewed in the axial, sagittal, and coronal planes. 3-D MIPS images are created and assessed. IV contrast was administered without complication. All measurements were obtained according to NASCET criteria. A dose lowering technique was utilized adhering to the principles of ALARA. CT DOSE: 856.68 mGy.cm FINDINGS: CT BRAIN: There is no acute intracranial hemorrhage, midline shift, hydrocephalus, intracranial mass, territorial ischemia or abnormal extra-axial collections. No abnormal intra-axial or extra-axial enhancement. Mastoid air cells and middle ear cavities are clear. No calvarial fracture. Minimal mucosal thickening of the ethmoid air cells.. CT ANGIOGRAM OF THE HEAD AND NECK: Three-vessel morphology of the thoracic aortic arch. There is patency of the innominate and image subclavian arteries. The common and internal carotid arteries are widely patent. The bilateral anterior and middle cerebral arteries are also patent. The vertebrobasilar system and posterior cerebral arteries are widely patent. There is no aneurysm, high-grade stenosis, or proximal branch occlusion identified. Dural sinuses appear patent. IMPRESSION: 1. No acute intracranial abnormality. 2. Unremarkable CTA of the head and neck. ACT 112: Negative or not required by law. The above report was generated using voice recognition software. It may contain grammatical, syntax or spelling errors. Electronically signed by: Ranjan Dodd M.D. 09/16/2024 1:39 PM Head CTA 09/16/24 13:14 CT angio head w con, CT head/brain wo con, CT angio neck with con CLINICAL HISTORY: 38 years-old Female with neuro deficit, acute stroke suspected. Acute stroke like symptoms. Acute headache with dizziness. COMPARISON STUDY: None TECHNIQUE: Unenhanced axial CT scan of the brain is performed. Subsequently, following the IV administration of 119 cc of Optiray, CT angiogram of the head and neck was performed from the aortic arch to the skull apex. Images are reviewed in the axial, sagittal, and coronal planes. 3-D MIPS images are created and assessed. IV contrast was administered without complication. All measurements were obtained according to NASCET criteria. A dose lowering technique was utilized adhering to the principles of ALARA. CT DOSE: 856.68 mGy.cm FINDINGS: CT BRAIN: There is no acute intracranial hemorrhage, midline shift, hydrocephalus, intracranial mass, territorial ischemia or abnormal extra-axial collections. No abnormal intra-axial or extra-axial enhancement. Mastoid air cells and middle ear cavities are clear. No calvarial fracture. Minimal mucosal thickening of the ethmoid air cells.. CT ANGIOGRAM OF THE HEAD AND NECK: Three-vessel morphology of the thoracic aortic arch. There is patency of the innominate and image subclavian arteries. The common and internal carotid arteries are widely patent. The bilateral anterior and middle cerebral arteries are also patent. The vertebrobasilar system and posterior cerebral arteries are widely patent. There is no aneurysm, high-grade stenosis, or proximal branch occlusion identified. Dural sinuses appear patent. IMPRESSION: 1. No acute intracranial abnormality. 2. Unremarkable CTA of the head and neck. ACT 112: Negative or not required by law. The above report was generated using voice recognition software. It may contain grammatical, syntax or spelling errors. Electronically signed by: Ranjan Dodd M.D. 09/16/2024 1:39 PM Neck CTA 09/16/24 13:14 CT angio head w con, CT head/brain wo con, CT angio neck with con CLINICAL HISTORY: 38 years-old Female with neuro deficit, acute stroke suspected. Acute stroke like symptoms. Acute headache with dizziness. COMPARISON STUDY: None TECHNIQUE: Unenhanced axial CT scan of the brain is performed. Subsequently, following the IV administration of 119 cc of Optiray, CT angiogram of the head and neck was performed from the aortic arch to the skull apex. Images are reviewed in the axial, sagittal, and coronal planes. 3-D MIPS images are created and assessed. IV contrast was administered without complication. All measurements were obtained according to NASCET criteria. A dose lowering technique was utilized adhering to the principles of ALARA. CT DOSE: 856.68 mGy.cm FINDINGS: CT BRAIN: There is no acute intracranial hemorrhage, midline shift, hydrocephalus, intracranial mass, territorial ischemia or abnormal extra-axial collections. No abnormal intra-axial or extra-axial enhancement. Mastoid air cells and middle ear cavities are clear. No calvarial fracture. Minimal mucosal thickening of the ethmoid air cells.. CT ANGIOGRAM OF THE HEAD AND NECK: Three-vessel morphology of the thoracic aortic arch. There is patency of the innominate and image subclavian arteries. The common and internal carotid arteries are widely patent. The bilateral anterior and middle cerebral arteries are also patent. The vertebrobasilar system and posterior cerebral arteries are widely patent. There is no aneurysm, high-grade stenosis, or proximal branch occlusion identified. Dural sinuses appear patent. IMPRESSION: 1. No acute intracranial abnormality. 2. Unremarkable CTA of the head and neck. ACT 112: Negative or not required by law. The above report was generated using voice recognition software. It may contain grammatical, syntax or spelling errors. Electronically signed by: Ranjan Dodd M.D. 09/16/2024 1:39 PM Discharge Plan Visit Data Chief Complaint: Cardiac Assessment Stated Complaint: LT ARM TINGLY, HEAD AND FACE PAIN ED Provider: Gustavo Wiggins Discharge Problem: Subconjunctival hemorrhage, Acute hypokalemia, Stroke-like symptoms Patient Disposition: Admitted As Inpatient Condition: Good Discharge Instructions Interventions: ED Discharge Assessment Last Done: 09/16/24 21:48 Discharge Problem: Subconjunctival hemorrhage Qualifiers: Laterality: left Qualified Code(s): H11.32 - Conjunctival hemorrhage, left eye
[2024-09-16] MEDS: OPTIRAY 320 125ml IV ONE (13:17)
[2024-09-16 13:27] LABS: Basophils # (auto) 0.03 K/uL (0.00-0.20); Basophils % (auto) 0.6 %; Eosinophils # (auto) 0.44 K/uL (0.00-0.50); Hematocrit (blood only) 40.8 % (37.0-47.0); Hemoglobin 13.3 g/dl (12.0-16.0); Immature Granulocytes # (auto) 0.02 K/uL (0.01-0.20); Immature Granulocytes % (auto) 0.4 %; Lymphocytes # (auto) 1.63 K/uL (1.20-3.40); Lymphocytes % (auto) 33.3 %; Mean Corpuscular Hemoglobin 28.2 pg (25.0-34.0); Mean Corpuscular Hgb Conc 32.6 g/dL (32.0-36.0); Mean Corpuscular Volume 86.4 fL (80.0-100.0); Mean Platelet Volume 11.1 fL (9.4-12.4); Monocytes # (auto) 0.55 K/uL (0.11-0.59); Monocytes % (auto) 11.2 %; Neutrophils # (auto) 2.23 K/uL (1.40-6.50); Neutrophils % (auto) 45.5 %; Platelet Count 193 K/uL (130-400); RDW Coefficient of Variation 15.1 % (11.5-14.5); RDW Standard Deviation 48.1 fL (36.4-46.3); Red Blood Count 4.72 M/uL (4.20-5.40)
[2024-09-16 13:39] LABS: Partial Thromboplastin Time 26 Seconds (21-31)
--- NOTE | 2024-09-16 13:42 | CT Scan Report ---
CT angio head w con, CT head/brain wo con, CT angio neck with con CLINICAL HISTORY: 38 years-old Female with neuro deficit, acute stroke suspected. Acute stroke lik e symptoms. Acute headache with dizziness. COMPARISON STUDY: None TECHNIQUE: Unenhanced axial CT scan of the brain is performed. Subsequently, following the IV adminis tration of 119 cc of Optiray, CT angiogram of the head and neck was performed from the aortic arch to the skull apex. Images are reviewed in the axial, sagittal, and coronal planes. 3-D MIPS images are created and assessed. IV contrast was administered without complication. All measurements were obtain ed according to NASCET criteria. A dose lowering technique was utilized adhering to the principles of ALARA. CT DOSE: 856.68 mGy.cm FINDINGS: CT BRAIN: There is no acute intracranial hemorrhage, midline shift, hydrocephalus, intracranial mass, territori al ischemia or abnormal extra-axial collections. No abnormal intra-axial or extra-axial enhancement. Mastoid air cells and middle ear cavities are clear. No calvarial fracture. Minimal mucosal thickeni ng of the ethmoid air cells.. CT ANGIOGRAM OF THE HEAD AND NECK: Three-vessel morphology of the thoracic aortic arch. There is patency of the innominate and image sub clavian arteries. The common and internal carotid arteries are widely patent. The bilateral anterior and middle cerebral arteries are also patent. The vertebrobasilar system and posterior cerebral arter ies are widely patent. There is no aneurysm, high-grade stenosis, or proximal branch occlusion identi fied. Dural sinuses appear patent. IMPRESSION: 1. No acute intracranial abnormality. 2. Unremarkable CTA of the head and neck. ACT 112: Negative or not required by law. The above report was generated using voice recognition software. It may contain grammatical, syntax o r spelling errors. Electronically signed by: Ranjan Dodd M.D. 09/16/2024 1:39 PM
[2024-09-16] MEDS: SODIUM CHLORIDE 0.9% 1,000 ML IV SCH (13:49)
[2024-09-16] MEDS: dexAMETHasone**PF** 10 MG/ML VIAL IV ONE (13:49)
[2024-09-16] MEDS: ONDANSETRON INJ 2 MG/ML 2 ML VIAL IV STA (13:49)
[2024-09-16] MEDS: ACETAMINOPHEN 1000 MG/100 ML IV IV STA (13:49)
[2024-09-16 13:58] LABS: Alanine Aminotransferase 12 U/L (7-52); Albumin Globulin Ratio 1.2 (0.9-2); Albumin Level 4.5 gm/dl (3.4-5.0); Alkaline Phosphatase 84 U/L (34-104); Anion Gap 8 (3-11); Aspartate Aminotransferase 21 U/L (13-39); BUN Creatinine Ratio 18.3 (10-20); Bilirubin,Total 0.6 mg/dl (0.2-1.0); Blood Urea Nitrogen 15 mg/dl (6-23); Calcium 9.4 mg/dl (8.6-10.3); Carbon Dioxide 26 mmol/L (21-32); Chloride 107 mmol/L (98-107); Creatinine Clr Calc Pharmacy 70.2 ml/min; Globulin 3.7 gm/dl (2.5-4.0); Glucose 99 mg/dl (70-99(Fasting)); Potassium 3.4 mmol/L (3.5-5.1); Sodium 141 mmol/L (136-145); Total Protein 8.2 gm/dl (6.0-8.3)
--- NOTE | 2024-09-16 13:59 | Electrocardiogram Report ---
Test Reason : Blood Pressure : */* mmHG Vent. Rate : 91 BPM Atrial Rate : 91 BPM P-R Int : 138 ms QRS Dur : 70 ms QT Int : 366 ms P-R-T Axes : 77 82 61 degrees QTcB Int : 450 ms Normal sinus rhythm Nonspecific ST abnormality Abnormal ECG When compared with ECG of 17-Sep-2023 15:04, No significant change was found Confirmed by Gideon Gorman ([id number]) on 09/16/2024 1:59:23 PM Referred By: Confirmed By: Gideon Gorman
[2024-09-16 14:04] LABS: Troponin I High Sensitivity < 2.3 pg/ml (0-14)
[2024-09-16] MEDS: CLOPIDOGREL BISULFATE 300 MG TAB PO STA (14:29)
[2024-09-16] MEDS: ASPIRIN CHEW 324 MG PO STA (14:29)
[2024-09-16] MEDS ORDERED: ACETAMINOPHEN 325 MG TAB PO PRN (14:32)
[2024-09-16] MEDS ORDERED: ACETAMINOPHEN 500 MG TAB PO PRN (14:37)
[2024-09-16 14:59] LABS: D Dimer < 190 ug/L FEU (0-500)
[2024-09-16 15:06] LABS: Phosphorus 3.3 mg/dl (2.5-4.9)
[2024-09-16 15:21] LABS: Thyroid Stimulating Hormone 4.082 uIu/ml (0.300-4.500)
[2024-09-16 15:23] LABS: Estimated Average Glucose 108 mg/dl; Hemoglobin A1C 5.4 % (4.5-5.6)
--- NOTE | 2024-09-16 16:08 | Magnetic Resonance Report ---
MRI of the brain performed without IV contrast History: Left arm pain. Dizziness Comparison: None Technique: Sagittal T1-weighted and axial T2-weighted, T2/FLAIR and diffusion-weighted with ADC map images of the brain were obtained without IV contrast. Findings: No evidence for intracranial mass lesion, mass-effect, midline shift, or abnormal extra-axial fluid collection. The ventricles and sulci are within normal limits for age. No abnormally reduced diffusion or evidence for acute infarct. Normal intravascular flow voids. Impression: Normal brain MRI Electronically signed by Isrrael Li 09-16-2024 4:07 PM
--- NOTE | 2024-09-16 16:19 | History & Physical Report ---
Date of Service September 16, 2024 Assessment & Plan (1) Subconjunctival hemorrhage: Plan: As above in the History of Present Illness. (2) Acute hypokalemia: Plan: As above in the History of Present Illness. (3) TIA (transient ischemic attack): Plan: As above in the History of Present Illness. Plan As above in the History of Present Illness. History of Present Illness Chief Complaint: "I went to bed at 6:00am this morning (09/16/2024) and I woke up at 10:30am this morning (09/16/2024) and my left eye was red and my left arm was weak. I am right-handed. I don't know what happened. My left eye and left arm were weak when I went to sleep. I can see fine. No double vision. No headache." Primary Care Provider: Curtis Hopper DO 38 years old, Taiwanese-speaking, right-handed [facility] female with PMH of FULL CODE @ home, stage II left ovarian carcinoma, s/p partial resection and radiation therapy, no chemotherapy in [facility] (2016), now in remission, who reports feeling well and going to bed as usual at: 6:00am this morning (09/16/2024) and I woke up at 10:30am this morning (09/16/2024) and my left eye was red and my left arm was weak. I am right- handed. I don't know what happened. My left eye and left arm were weak when I went to sleep. I can see fine. No double vision. No headache." Patient denies antecedent/coincident fevers, chills, diaphoresis, cough, wheeze, sore throat, hemoptysis, chest pains, palpitations, pleurisy, nausea, vomiting, diarrhea, abdominal pain, pelvic pain, hematemesis, hematochezia, melena, hematuria, dysuria, frequency, urgency, headaches, dizziness, lightheadedness, visual changes, hearing changes, syncope, falls, trauma, travel history, sick contacts, or food/drug ingestions novel or new. All other review of systems are reported as negative by the patient on 09/16/2024. In [facility] ER, patient was afebrile @ 36.9 degrees Celsius, HR 94, RR 18, O2 sat 99% on room air, and BP 94/61 (09/16/2024, 2:50pm). Exam was noted for left medial subconjunctival hemorrhage without chemosis, hyphema, nystagmus, gaze paresis, anisocoria, miosis, mydriasis, or pterygium. Visual acuity 20/20 by Snellen testing. Labs in [facility] ER included: WBC 4.90, Hb 13.3, platelet 193 (09/16/2024, 1:05pm). Na 141, K 3.4, BUN 15, creatinine 0.92, Ca 9.4, Mg 2.0, PO4 3.3, CK 66, glucose 99, AST 21, ALT 12, ALK PHOS 84, TBili 0.6 (09/16/2024, 1:05pm). HbA1c 5.4% (09/16/2024, 1:05pm). U/A (09/16/2024, 2:35pm): Additional testing in [facility] ER included: CT brain without contrast (09/16/2024, 1:14pm): No acute bleed, mass, or midlin e shift. CTA head/neck (09/16/2024, 1:14pm): No acute intracranial abnormality. MRI brain without contrast (09/16/2024, 2:32pm): Normal MRI brain. EKG (09/16/2024, 12:58pm): NSR @ 91, MA 138, QTC 450, no acute ST depressions/elevations (by my review). Patient was subsequently placed in OBSERVATION on the hospitalist service @ [facility] on 09/16/2024 with the following diagnoses: 1. Acute hypokalemia with K 3.4 mmol/L (09/16/2024, 1:05pm), R/O acute UTI. 2. Acute left medial subconjunctival hemorrhage. 3. TIA, s/p R/O acute CVA. To address #1, patient will receive KCl 40meq PO x 1 dose (09/16/2024, 4:35pm) and I will check repeat K in the 09/17/2024 am. I also await U/A (09/16/2024, 2:35pm) to R/O acute UTI as a proximal cause for patient's acute hypokalemia. To address #2, patient is being observed. Etiology remains unclear. Patient received ASA 81mg PO x 1 dose (09/16/2024, 2:29pm) and plavix 300mg PO x 1 dose (09/16/2024, 2:29pm) in [facility] ER. I have opted not to continue either medication given potential for either/both medications to exacerbate acute left medial subconjunctival hemorrhage. To address #3, patient awaits fasting lipid panel (09/17/2024, 4:44am), TTE (09/17/2024, 8:00am), and PT/OT/Speech & Swallow Service evaluations in the 09/17/2024 am, followed by anticipated D/C back to home in the 09/17/2024 am. Allergies Allergy/AdvReac Type Severity Reaction Status Date / Time No Known Allergies Allergy Verified 09/17/23 19:58 Home Medications Medication Instructions Recorded Confirmed Type acetaminophen 500 mg tablet 1,000 mg PO Q6H PRN Pain 01/29/21 09/16/24 History (Tylenol Extra Strength) Past Med/Surg History Problem List (Updated 09/16/24 @ 16:45 by Rigo Morrow MD, PhD) TIA (transient ischemic attack) Acute hypokalemia Subconjunctival hemorrhage Depressed (Acute) Mood disorder (Acute) Gastroesophageal reflux disease Hemorrhoids Erosive gastritis with hemorrhage Suicide attempt (~04/2020) Depression 12/2020 Hospitalized [facility] on 302 Gastritis Dysfunctional uterine bleeding Weight loss Medical History Suicidal ideation Ovarian cancer diagnosed 2016--sx/radiation Migraine headache Acid reflux Surgical History History of cancer surgery 2016--in [facility]--"just removed the cancer parts", pt denies oophorectomy History of wisdom tooth extraction S/P section x3 Family History Mother Hypertension Father Diabetes Family history of diabetes mellitus Hypertension Family hx of colon cancer Grandmother (Maternal) Family history of diabetes mellitus Other No family history of adverse response to anesthesia Denies family history of Colon cancer Ovarian cancer Prostate cancer Myocardial infarction Breast cancer Social History Smoking Status: Never smoker Second Hand Exposure: No; Do You Dip or Chew Tobacco: No; Hx Alcohol Use: Yes Alcohol type: wine Alcohol Intake Frequency: 2-4 x/Month Hx Substance Use: No Preferred Language: Taiwanese Communication Ability: Effective Communication Ability Comment: Communicated effectively Visual Impairment: No Limitations Hearing Ability: Normal Balloon Artist Required: No Beliefs That Will Affect Care: None marital status: marital status details: separtated Current Living Situation: Family Current Living Situation Comment: Lives with son (separted from ),[employer] current occupational status: unemployed current occupation: Homemaker How many Children do You have: 2 Feels Safe at Home: Yes Childhood Exposure to Second-Hand Smoke: No Diet: regular caffeine: Yes Dental Care, Regularly: Yes Physical Activity Frequency: 1-2 Times per Week Seatbelt Use: always Sunscreen Use: Yes Do you think of yourself as: straight/heterosexual Assistive Devices: None Review of Systems Constitutional: As above in the History of Present Illness. Physical Exam Constitutional: General: Comfortable, coherent, and cooperative. Wide awake and alert. Not confused, lethargic, or obtunded. Patient speaks in complete, fluent, and articulate sentences without pause, interruption, cough, or wheeze. HEENT: Normocephalic, atraumatic. Left medial subconjunctival hemorrhage. No chemosis, hyphema, nystagmus, gaze paresis, anisocoria, miosis, mydriasis, or pterygium. No otorrhea or rhinorrhea. No pharyngeal erythema, edema, or discharge. Neck: Supple, no stridor, bruit, goiter, or hepato-jugular reflux. Jugular venous pressure is estimated to be 3 cm above the sternal angle of Luis, which in turn, is 5 cm above the level of the right atrium; with jugular venous pressure estimated to be 8 cm, then, there is no jugular venous distention on 09/16/2024. Lymphatics: No cervical (anterior/posterior), supraclavicular, infraclavicular, axillary, epitrochlear, or inguinal adenopathy. Chest: Symmetric rise and fall with respirations. Non-tender to palpation. Lungs: Clear to auscultation and percussion. Heart: Regular rate and rhythm. S1 and S2 noted. No S3 or S4 summation gallop. No tripartite friction rub. Grade II/ early systolic murmur @ LLSB without radiation to the carotids, axilla, or back, and which remains invariant in regards to the respiratory cycle. Abdomen: Soft, non-tender, non-distended. No rebound, guarding, Rooney's sign, or organomegaly. Bowel sounds auscultated in all 4 quadrants. G UAIAC+ stool (09/15/2024, 12:05pm). Extremities: No clubbing, cyanosis. 2+ pitting pedal edema with extension to the bilateral mid-shins, sparing the bilateral upper shins, knees, hips, thighs, abdomen. 2+ pedal pulses bilaterally. Skin: No decubitus ulcer, exanthem, or enanthem. Genito-urinary: No urethral discharge. No martinez catheter. Neurology: Alert and oriented in regards to person, place, time, and situation. DTR+ and symmetric. 5/5 motor strength in all 4 extremities, both proximally and distally. No pronator drift. No facial droop. No dysarthria. Psychiatry: No homicidal ideation. No suicidal ideation. No flat affect; smiles appropriately. Results & Data Results & Data Vital Signs (Past 12 Hours) Vital Signs Temp Pulse Pulse Resp BP BP Pulse Ox 09/16/24 13:00 99 H 16 98/74 L 98 09/16/24 13:00 88 09/16/24 12:55 98 09/16/24 12:47 36.8 C 80 18 129/83 100 O2 Del Method 09/16/24 13:00 Room Air 09/16/24 13:00 09/16/24 12:55 Room Air 09/16/24 12:47 Room Air Laboratory Results As above in the History of Present Illness. Diagnostic Findings As above in the History of Present Illness. Medications Administered As above in the History of Present Illness. Code Status & VTE Plan VTE Prophylaxis Plan VTE Prophylaxis will be ordered: Yes PG Care Time/CCT Total # of Minutes Spent Total Time Spent with Patient: Total time spent is greater than 50% in coordination of care (as documented) at patient's floor/unit and/or counseling patient: Coding Level of Care Code 88319 INT INP/OBS CARE MIN Diagnoses Subconjunctival hemorrhage H11.30 Acute hypokalemia E87.6 TIA (transient ischemic attack) G45.9
[2024-09-16 16:42] LABS: Appearance Urine Clear (Clear); Bilirubin Urine Negative (Negative); Blood Urine Negative (Negative); Color Urine Yellow; Glucose Urine UA Negative (Negative); Ketones Urine Negative (Negative); Leukocyte Esterase Urine Negative (Negative); Nitrite Urine Negative (Negative); Protein Urine Negative (Negative); Specific Gravity Urine > 1.045 (1.000-1.030); Urobilinogen Urine Negative (Negative)
[2024-09-16] MEDS: POTASSIUM CHLORIDE CRTAB 20 MEQ TABCR PO STA (17:12)
[2024-09-16] MEDS: CLOPIDOGREL BISULFATE 75 MG TAB PO ONE (22:49)
[2024-09-17 08:10] LABS: Calcium 8.9 mg/dl (8.6-10.3); Chol HDL Ratio 2.8 (0-5); Creatinine Clr Calc Pharmacy 102.8 ml/min
[2024-09-17] MEDS: ASPIRIN 81 MG ECTAB PO SCH (08:54)
[2024-09-17] MEDS ORDERED: CLOPIDOGREL BISULFATE 75 MG TAB PO SCH (09:00)
[2024-09-17] MEDS ORDERED: ASPIRIN 81 MG ECTAB PO SCH (09:00)
[2024-09-17 11:33] VITALS: BP 91/58; PULSE 88; RESP 16; TEMP 98.1; O2SAT 94
--- NOTE | 2024-09-17 13:34 | XCELERA ---
[id number]
--- NOTE | 2024-09-17 13:43 | Discharge Summary ---
Discharge Summary Date of Service September 17, 2024 Principal Dx & Hospital Course #1 = Principal Diagnosis (1) Subconjunctival hemorrhage: As above in the History of Present Illness. (2) Acute hypokalemia: As above in the History of Present Illness. (3) TIA (transient ischemic attack): As above in the History of Present Illness. Plan As above in the History of Present Illness. Admission HPI Per Admitting Provider 38 years old, Irish-speaking, right-handed [place] female with PMH of FULL CODE @ home, stage II left ovarian carcinoma, s/p partial resection and radiation therapy, no chemotherapy in [facility] (2016), now in remission, who reports feeling well and going to bed as usual at: "6:00am this morning (09/16/2024) and I woke up at 10:30am this morning (09/16/2024) and my left eye was red and my left arm was weak. I am right- handed. I don't know what happened. My left eye and left arm were weak when I went to sleep. I can see fine. No double vision. No headache." Patient denies antecedent/coincident fevers, chills, diaphoresis, cough, wheeze, sore throat, hemoptysis, chest pains, palpitations, pleurisy, nausea, vomiting, diarrhea, abdominal pain, pelvic pain, hematemesis, hematochezia, melena, hematuria, dysuria, frequency, urgency, headaches, dizziness, lightheadedness, visual changes, hearing changes, syncope, falls, trauma, travel history, sick contacts, or food/drug ingestions novel or new. All other review of systems are reported as negative by the patient on 09/16/2024. In [facility] ER, patient was afebrile @ 36.9 degrees Celsius, HR 94, RR 18, O2 sat 99% on room air, and BP 94/61 (09/16/2024, 2:50pm). Exam was noted for left medial subconjunctival hemorrhage without chemosis, hyphema, nystagmus, gaze paresis, anisocoria, miosis, mydriasis, or pterygium. Visual acuity 20/20 by Snellen testing. Labs in [facility] ER included: WBC 4.90, Hb 13.3, platelet 193 (09/16/2024, 1:05pm). Na 141, K 3.4, BUN 15, creatinine 0.92, Ca 9.4, Mg 2.0, PO4 3.3, CK 66, glucose 99, AST 21, ALT 12, ALK PHOS 84, TBili 0.6 (09/16/2024, 1:05pm). HbA1c 5.4% (09/16/2024, 1:05pm). U/A (09/16/2024, 2:35pm): Additional testing in [facility] ER included: CT brain without contrast (09/16/2024, 1:14pm): No acute bleed, mass, or midline shift. CTA head/neck (09/16/2024, 1:14pm): No acute intracranial abnormality. MRI brain without contrast (09/16/2024, 2:32pm): Normal MRI brain. EKG (09/16/2024, 12:58pm): NSR @ 91, ND 138, QTC 450, no acute ST depressions/elevations (by my review). Patient was subsequently placed in OBSERVATION on the hospitalist service @ [facility] on 09/16/2024 with the following diagnoses: 1. Acute hypokalemia with K 3.4 mmol/L (09/16/2024, 1:05pm), R/O acute UTI. 2. Acute left medial subconjunctival hemorrhage. 3. TIA, s/p R/O acute CVA. To address #1, patient received KCl 40meq PO x 1 dose (09/16/2024, 4:35pm) and acute hypokalemia RESOLVED with post-supplement K 4.0 mmol/L (09/17/2024, 6:14am). In addition, patient ruled out for acute UTI with U/A (09/16/2024, 4:30pm) negative for LE and nitrites. To address #2, patient was observed while in [facility]. Etiology of acute left medial subconjunctival hemorrhage remains unclear as patient denies antecedent/coincident trauma to the eye or head, coughing, sneezing, vomiting, or hypertension. Patient received ASA 81mg PO x 1 dose (09/16/2024, 2:29pm) and plavix 300mg PO x 1 dose (09/16/2024, 2:29pm) in [facility] ER. I opted not to continue either medication given potential for either/both medications to exacerbate acute left medial subconjunctival hemorrhage, and in fact, patient's acute left medial subconjunctival hemorrhage extended to the left infra-corneal region on 09/17/2024 am, with no complaints of eye pain, visual changes (e.g., blurry vision, double vision, blindness), and no findings of chemosis, hyphema, nystagmus, gaze paresis, anisocoria, miosis, mydriasis, or pterygium. Visual acuity remained unchanged at 20/20 OS and 20/20 OD, by Snellen testing. In addition, ESR was normal at 7 mm/hr (09/17/2024, 6:25am) and CRP was normal at < 0.50 mg/dL (09/17/2024, 6:25am), thereby making acute inflammation (i.e., temporal arteritis) unlikely. Patient was further advised that this acute left medial subconjunctival hemorrhage will most likely resolve over the next 4-6 weeks by itself. Patient was advised to AVOID ASA, and other NSAIDS (e.g., ibuprofen, motrin, advil, aleve, etc.) to avoid further exacerbation of acute left medial subconjunctival hemorrhage. Patient reports that she will comply with this recommendation. To address #3, patient underwent fasting lipid panel (09/17/2024, 6:25am) which revealed a total cholesterol 160 mg/dL, LDL 84 mg/dL, HDL 57 mg/dL, and triglyceride 95 mg/dL. Patient also underwent TTE (09/16/2024, 2:32pm), and was discharged home before publication of TTE (09/16/2024, 2:32pm). Patient was subsequently advised to follow up the official TTE (09/16/2024, 2:32pm) report with her PCP within 5 days of hospital discharge. Given the low index of suspicion for TIA, let alone acute CVA, I discontinued my orders for PT/OT/Speech & Swallow Service evaluations in the 09/17/2024 am, and hence, patient did not undergo PT/OT/Speech & Swallow Service evaluations in the 09/17/2024 am. Discharge Exam Constitutional General: Comfortable, coherent, and cooperative. Wide awake and alert. Not confused, lethargic, or obtunded. Patient speaks in complete, fluent, and articulate sentences without pause, interruption, cough, or wheeze. HEENT: Normocephalic, atraumatic. Left medial subconjunctival hemorrhage with extension to the left infra-corneal region on 09/17/2024. No chemosis, hyphema, nystagmus, gaze paresis, anisocoria, miosis, mydriasis, or pterygium. No otorrhea or rhinorrhea. No pharyngeal erythema, edema, or discharge. Neck: Supple, no stridor, bruit, goiter, or hepato-jugular reflux. Jugular venous pressure is estimated to be 3 cm above the sternal angle of Luis, which in turn, is 5 cm above the level of the right atrium; with jugular venous pressure estimated to be 8 cm, then, there is no jugular venous distention on 09/17/2024. Lymphatics: No cervical (anterior/posterior), supraclavicular, infraclavicular, axillary, epitrochlear, or inguinal adenopathy. Chest: Symmetric rise and fall with respirations. Non-tender to palpation. Lungs: Clear to auscultation and percussion. Heart: Regular rate and rhythm. S1 and S2 noted. No S3 or S4 summation gallop. No tripartite friction rub. Grade II/ early systolic murmur @ LLSB without radiation to the carotids, axilla, or back, and which remains invariant in regards to the respiratory cycle. Abdomen: Soft, non-tender, non-distended. No rebound, guarding, Rooney's sign, or organomegaly. Bowel sounds auscultated in all 4 quadrants. Extremities: No clubbing, cyanosis. 2+ pitting pedal edema with extension to the bilateral mid-shins, sparing the bilateral upper shins, knees, hips, thighs, abdomen. 2+ pedal pulses bilaterally. Skin: No decubitus ulcer, exanthem, or enanthem. Genito-urinary: No urethral discharge. No martinez catheter. Neurology: Alert and oriented in regards to person, place, time, and situation. DTR+ and symmetric. 5/5 motor strength in all 4 extremities, both proximally and distally. No pronator drift. No facial droop. No dysarthria. Psychiatry: No homicidal ideation. No suicidal ideation. No flat affect; smiles appropriately. Discharge Plan Discharge Items Patient Disposition: Home - Self-Care Reason For Visit: TIA Discharge Diagnosis: Acute left medial subconjunctival hemorrhage; acute hypokalemia Condition on Discharge: Good Activity: Resume your previous activity Lifting: None Bathing: No limitations Sexual Activity: When tolerated Driving/Machine Use: No limitations Weightbearing: Full weightbearing Non-emergency contact: Primary Care Provider Call non-emergency contact if: you have any medication questions Follow-up/Referrals: Curtis Hopper, [Primary Care Provider] - 09/21/24 11:30 am Diet: Heart Healthy Addtl Attending Provider Instructions: See your PCP Dr. Curtis Hopper within 5 days of hospital discharge to re-evaluate your acute left medial subconjunctival hemorrhage and to re-check your potassium level. Pending Studies at Discharge: No Stand-Alone Forms: My NICE, Smoking Cessation Medications and DC Order Prescriptions: Continued acetaminophen [Tylenol Extra Strength] 500 mg Tablet 1,000 mg PO Q6H PRN (Reason: Pain) Rx Instructions: Unable to verify OTC meds at this date/time. Discharge Orders: Discharge Order (Routine); Ordered 09/17/24 Ordered By: Rigo Morrow Admission Data Admit Date/Time: 09/16/24 14:32 Attending Provider: Rigo Morrow Admit Provider: Rigo Morrow Primary Care Provider: Curtis Hopper Other Providers: Rigo Morrow Other Interventions: Discharge Summary Assessment (RN) Last Done: 09/17/24 10:10 Hospital Stay Data Consultations 09/16/24 14:21 ED Decision to Admit Stat Diagnostic Imagining Performed 09/16/24 13:14 CT angio head w con Stat CT angio neck with con Stat CT head/brain wo con Stat 09/16/24 14:32 MRI Brain [MR brain wo con] Stat Pending Results Patient Have Any Pending Studies at Discharge: No Discharge Instructions Given to Patient (Per Discharging Provider) See your PCP Dr. Curtis Hopper within 5 days of hospital discharge to re-evaluate your acute left medial subconjunctival hemorrhage and to re-check your potassium level. Total Time Total Time Spent Total Time Spent (In Minutes): 35 minutes. Of this time period, 19 minutes were spent in coordinating patient's discharge. Coding Level of Care Code 86516 INP/OBS DISCH >30 MIN Diagnoses Subconjunctival hemorrhage H11.32 Laterality: left Acute hypokalemia E87.6 TIA (transient ischemic attack) G45.9
== END 2024-09-17 13:13 | disposition home or self-care (01) ==
LOC: SUATTDRO → 2N 12:45 → ED 12:45 → 2N 21:48